=== PATIENT | male | born 1945 | race Caucasian/White ===

== ENCOUNTER 2016-09-17 17:55 | Emergency (ER) | payer MEDICARE, OTHER ==
[~2016-09-17] VITALS: Ht 175.3 cm; Wt 63.5 kg
[~2016-09-17 17:55] MED LIST: ASPIRIN81 MG ORAL; CALCIUM + D SO1 EACH PO; KEFLEX500 MG ORAL; QUETIAPINE FUMA25 MG PO; SERTRALINE HCL50 MG PO
[2016-09-17 18:38] LABS: APPEARANCE,URINE CLOUDY; KETONES,URINE NEGATIVE (NEGATIVE); NITRITE,URINE NEGATIVE (NEGATIVE); PROTEIN,URINE 1+ (NEGATIVE); UROBILINOGEN,URINE NORMAL MG/DL (0.0-1.0)
[2016-09-17 18:39] LABS: LEUKOCYTE ESTERASE ,URINE 2+ (NEGATIVE)
[2016-09-17] MEDS ORDERED: BACTRIM DS TAB1 EAC1 ORAL (18:39)
[2016-09-17] MEDS ORDERED: Bactrim DS (160mg/800mg) tab ORAL ONE (18:45)
[2016-09-17 18:49] LABS: RBC,URINE TNTC /HPF (0 - 0); WBC,URINE TNTC /HPF (0 - 0)
[2016-09-17 18:50] LABS: BACTERIA,URINE FEW /HPF
--- NOTE | 2016-09-17 18:57 | Emergency Room Report ---
History of Present Illness General Chief Complaint: Male Urogenital Problems Source: Patient Present Illness HPI Patient is a 71-year-old male who presented after increased dysuria and frequency of urination. The patient had prior history of prostate surgery. Patient state had intermittent episodes of urinary tract infections in the past per patient report having increased frequency of urination associated with increased hesitancy. Patient denied any fever or dizziness. He is followed by urologist. Allergies: Coded Allergies: No Known Allergies (Unverified , 07/18/12) Patient History Past Medical History: see triage record Reviewed Nursing Documentation: PMH: Agreed, PSxH: Agreed Nursing Documentation-PMH Past Medical History: No History, Except For Review of Systems All Other Systems: negative except mentioned in HPI Physical Exam Vital Signs Date Time Temp Pulse Resp B/P Pulse Ox O2 Delivery O2 Flow Rate FiO2 09/17/16 18:00 97.9 73 16 144/69 97 Room Air General Appearance: well appearing, no apparent distress, alert, GCS 15 Head: normocephalic, atraumatic ENT: hearing grossly normal, normal voice Neck: full range of motion, supple Respiratory: no respiratory distress, speaking full sentences Musculoskeletal: normal inspection, back normal, gait/station normal, no calf tenderness Neurologic: normal gait Psychiatric: mood/affect normal Skin: no rash Medical Decision Making Diagnostic Impression: Primary Impression: Urinary tract infection ER Course Patient presented for dysuria. Differential diagnosis included was not limited to appendicitis, urinary tract infection, pelvic inflammatory disease, urethritis, herpes among others. Patient's benign exam and does not appear to require any imaging at this time. Urinalysis showed evidence of a urinary tract infection. The patient does not appear septic. The patient was given Bactrim in emergency department. He is given prescription for antibiotics The patient is advised to follow up with primary care doctor in 1-2 days. Patient is advised to return if any worsening condition or if any changes in status that are concerning. Last Vital Signs Date Time Temp Pulse Resp B/P Pulse Ox O2 Delivery O2 Flow Rate FiO2 09/17/16 18:00 97.9 73 16 144/69 97 Room Air Status: improved Disposition: HOME, SELF-CARE Condition: Stable Scripts Trimethoprim/Sulfamethoxazole 160/800* (BACTRIM DS TABLET*) 1 Each Tablet 1 TAB ORAL Q12H, #28 TAB 0 Refills Prov: Mode Blanchard 09/17/16 Referrals: NOT CHOSEN IPA/,REFERRING (PCP) Patient Instructions: Urinary Tract Infection Mode Blanchard Sep 17, 2016 18:57
[2016-09-17 18:58] VITALS: BP 142/85
== END 2016-09-17 19:05 | disposition home or self-care (01) ==
LOC: EMR 18:20
DX: N39.0 Urinary tract infection, site not specified (principal)
CPT/HCPCS: 81003; 87086; 87181; 99283

== ENCOUNTER 2016-11-11 15:22 | Inpatient (IN) | payer MEDICARE, OTHER ==
[~2016-11-11] VITALS: Ht 175.3 cm; Wt 63.5 kg
[~2016-11-11 15:22] MED LIST changes: +BACTRIM DS TAB1 EAC1 ORAL
[2016-11-11 16:00] LABS: BASOPHILS % (AUTO) 1.1 % (0.0-2.0); EOSINOPHILS % (AUTO) 3.7 % (0.0-3.0); LYMPHOCYTES % (AUTO) 20.3 % (20.0-45.0); MEAN CORPUSCULAR HEMOGLOBIN 30.3 PG (27.0-31.0); MEAN CORPUSCULAR HGB CONC 31.9 G/DL (32.0-36.0); MEAN CORPUSCULAR VOLUME 95 FL (80-99); MONOCYTES % (AUTO) 9.1 % (1.0-10.0); NEUTROPHILS % (AUTO) 65.9 % (45.0-75.0); PLATELET COUNT 285 K/UL (150-450); RED BLOOD COUNT 4.67 M/UL (4.70-6.10); RED CELL DISTRIBUTION WIDTH 13.2 % (11.6-14.8); WHITE BLOOD COUNT 10.9 K/UL (4.8-10.8)
[2016-11-11] MEDS ORDERED: Famotidine 20 MG/ 2ML VIAL IVP ONE (16:00)
[2016-11-11 16:03] LABS: APPEARANCE,URINE CLEAR; KETONES,URINE 4+ (NEGATIVE); LEUKOCYTE ESTERASE ,URINE NEGATIVE (NEGATIVE); NITRITE,URINE NEGATIVE (NEGATIVE); PH,URINE 6 (4.5-8.0); PROTEIN,URINE NEGATIVE (NEGATIVE); UROBILINOGEN,URINE NORMAL MG/DL (0.0-1.0)
[2016-11-11 16:15] LABS: RBC,URINE 0-2 /HPF (0 - 0); WBC,URINE 0-2 /HPF (0 - 0)
[2016-11-11 16:16] LABS: BACTERIA,URINE FEW /HPF
[2016-11-11 16:22] LABS: TROPONIN I < 0.30 ng/mL (<=0.30)
[2016-11-11 16:23] LABS: ALANINE AMINOTRANSFERASE 13 U/L (3-41); ALBUMIN/GLOBULIN RATIO 1.1 (1.0-2.7); ANION GAP 18 (5-15); ASPARTATE AMINO TRANSFERASE 23 U/L (5-40); CALCIUM 9.9 mg/dL (8.6-10.2); CARBON DIOXIDE 28 mEQ/L (20-30); CHLORIDE 90 mEQ/L (98-107); CREATININE 0.9 mg/dL (0.7-1.2); GLOMERULAR FILTRATION RATE > 60 mL/min (>60); HEMOLYSIS 5; LIPASE 13 U/L (< 60); POTASSIUM 3.8 mEQ/L (3.4-4.9); SODIUM 136 mEQ/L (135-145); TOTAL PROTEIN 8.2 g/dL (6.6-8.7)
--- NOTE | 2016-11-11 16:31 | Diagnostic Imaging Report ---
Indication: Chest pain Technique: One view of the chest Comparison: none Findings: Lungs and pleural spaces are clear. Heart size is normal. Impression: No acute process
[2016-11-11 16:41] VITALS: BP 141/77
[2016-11-11 16:51] LABS: CKMB 5.5 ng/mL (< 6.7)
[2016-11-11 18:22] VITALS: BP 138/76
[2016-11-11] MEDS ORDERED: Morphine Sulfate 2mg/ml Inj IVP PRN (19:15)
[2016-11-11] MEDS ORDERED: Nitroglycerin Subl 0.4mg tab (Bottle Of 25) SL PRN (19:15)
[2016-11-11] MEDS ORDERED: Miralax 17gm pkt ORAL PRN (19:15)
[2016-11-11] MEDS ORDERED: Mylanta II UD 30ml ORAL PRN (19:15)
[2016-11-11] MEDS: D5 1/2NS 1,000 ML IV SCH (20:15)
--- NOTE | 2016-11-11 20:31 | Emergency Room Report ---
History of Present Illness General Chief Complaint: Abdominal Pain Source: Patient Present Illness HPI 71-year-old male presents ED complaining of dizziness and weakness with abdominal pain. patient symptoms started today around 2 PM. Notes epigastric pain which is sharp, 7/10, nonradiating. Notes nausea, denies vomiting. Denies chest pain or shortness of breath. States he feels lightheaded and dizzy. Notes dizziness even while at rest. No aggravating or relieving factors. Denies any other associated symptoms Allergies: Coded Allergies: No Known Allergies (Unverified , 07/18/12) Patient History Past Medical History: none Past Surgical History: none Pertinent Family History: none Social History: Denies: alcohol use, drug use, smoking Immunizations: UTD Reviewed Nursing Documentation: PMH: Agreed, PSxH: Agreed Review of Systems All Other Systems: negative except mentioned in HPI Physical Exam Vital Signs Date Time Temp Pulse Resp B/P Pulse Ox O2 Delivery O2 Flow Rate FiO2 11/11/16 15:21 98.4 59 20 147/77 99 Room Air Sp02 EP Interpretation: reviewed, normal General Appearance: no apparent distress, alert, GCS 15, non-toxic Head: normocephalic, atraumatic Eyes: bilateral eye PERRL, bilateral eye normal inspection ENT: hearing grossly normal, normal pharynx, no angioedema, normal voice Neck: full range of motion, supple/symm/no masses Respiratory: chest non-tender, lungs clear, normal breath sounds, speaking full sentences Cardiovascular #1: regular rate, rhythm, no edema Cardiovascular #2: 2+ carotid (R), 2+ carotid (L), 2+ radial (R), 2+ radial (L) , 2+ dorsalis pedis (R), 2+ dorsalis pedis (L) Gastrointestinal: normal bowel sounds, soft, non-distended, no guarding, no rebound, tenderness - epigastric Rectal: deferred Genitourinary: normal inspection, no CVA tenderness Musculoskeletal: back normal, gait/station normal, normal range of motion, non- tender Neurologic: alert, oriented x3, responsive, motor strength/tone normal, sensory intact, speech normal Psychiatric: judgement/insight normal, memory normal, mood/affect normal, no suicidal/homicidal ideation Reflexes: 3+ bicep (R), 3+ bicep (L), 3+ tricep (R), 3+ tricep (L), 3+ knee (R) , 3+ knee (L) Skin: normal color, no rash, warm/dry, well hydrated Lymphatic: no adenopathy Medical Decision Making Diagnostic Impression: Primary Impression: Bradycardia Additional Impression: Dizziness ER Course Hospital Course 71-year-old male presents ED complaining of dizziness, epigastric pain with nausea and vomiting Differential diagnoses include: [place]/unstable angina, hyperkalemia, gastritis Clinical course Patient placed on stretcher. on cardiac cath tech. After initial history and physical I ordered labs, EKG, chest x-ray, IVFs, pepcid, zofran labs reviewed- no leukocytosis, hb/hct stable, electrolytes ok, trop negative EKG - sinus radha, no acute ischemic changes Chest x-ray- unremarkable Case discussed with Dr. Meza and he agreed to accept the patient to his service for further care and support I. I feel this is a highly complex case requiring extensive working including EKG/Rhythm strip, Xray/CT/US, Blood/urine lab work, repeat exams while in ED, and administration of strong opiates/narcotics for pain control, admission to hospital or close patient follow up. Diagnosis - bradycardia, dizziness admitted to telemetry in serious condition Labs Test 11/11/16 15:52 White Blood Count 10.9 K/UL (4.8-10.8) Red Blood Count 4.67 M/UL (4.70-6.10) Hemoglobin 14.2 G/DL (14.2-18.0) Hematocrit 44.4 % (42.0-52.0) Mean Corpuscular Volume 95 FL (80-99) Mean Corpuscular Hemoglobin 30.3 PG (27.0-31.0) Mean Corpuscular Hemoglobin Concent 31.9 G/DL (32.0-36.0) Red Cell Distribution Width 13.2 % (11.6-14.8) Platelet Count 285 K/UL (150-450) Mean Platelet Volume 6.0 FL (6.5-10.1) Neutrophils (%) (Auto) 65.9 % (45.0-75.0) Lymphocytes (%) (Auto) 20.3 % (20.0-45.0) Monocytes (%) (Auto) 9.1 % (1.0-10.0) Eosinophils (%) (Auto) 3.7 % (0.0-3.0) Basophils (%) (Auto) 1.1 % (0.0-2.0) Urine Color Yellow Urine Appearance Clear Urine pH 6 (4.5-8.0) Urine Specific [place] 1.020 (1.005-1.035) Urine Protein Negative (NEGATIVE) Urine Glucose (UA) Negative (NEGATIVE) Urine Ketones 4+ (NEGATIVE) Urine Occult Blood 1+ (NEGATIVE) Urine Nitrite Negative (NEGATIVE) Urine Bilirubin Negative (NEGATIVE) Urine Urobilinogen Normal MG/DL (0.0-1.0) Urine Leukocyte Esterase Negative (NEGATIVE) Urine RBC 0-2 /HPF (0 - 0) Urine WBC 0-2 /HPF (0 - 0) Urine Squamous Epithelial Cells None /LPF (NONE/OCC) Urine Bacteria Few /HPF (NONE) Sodium Level 136 mEQ/L (135-145) Potassium Level 3.8 mEQ/L (3.4-4.9) Chloride Level 90 mEQ/L (98-107) Carbon Dioxide Level 28 mEQ/L (20-30) Anion Gap 18 (5-15) Blood Urea Nitrogen 15 mg/dL (7-23) Creatinine 0.9 mg/dL (0.7-1.2) Estimat Glomerular Filtration Rate > 60 mL/min (>60) Glucose Level 92 mg/dL (74-106) Calcium Level 9.9 mg/dL (8.6-10.2) Total Bilirubin 0.7 mg/dL (0.0-1.2) Aspartate Amino Transf (AST/SGOT) 23 U/L (5-40) Alanine Aminotransferase (ALT/SGPT) 13 U/L (3-41) Alkaline Phosphatase 81 U/L (40-129) Total Creatine Kinase 190 U/L (38-174) Creatine Kinase MB 5.5 ng/mL (< 6.7) Creatine Kinase MB Relative Index 2.8 Troponin I < 0.30 ng/mL (<=0.30) Total Protein 8.2 g/dL (6.6-8.7) Albumin 4.4 g/dL (3.5-5.2) Globulin 3.8 g/dL Albumin/Globulin Ratio 1.1 (1.0-2.7) Lipase 13 U/L (< 60) EKG Diagnostic Results Rate: bradycardiac Rhythm: NSR ST Segments: no acute changes ASA given to the pt in ED: No Rhythm Strip Diag. Results EP Interpretation: yes Rhythm: NSR, no PVC's, no ectopy Chest X-Ray Diagnostic Results EP Interpretation: No Findings: no consolidation, no effusion, no pneumothorax, no acute cardiopulmonary disease Number of Views: 1 Last Vital Signs Date Time Temp Pulse Resp B/P Pulse Ox O2 Delivery O2 Flow Rate FiO2 11/11/16 18:22 98.1 73 20 138/76 98 Room Air Status: improved Disposition: ADMITTED INPATIENT Condition: Serious Referrals: NON PHYSICIAN (PCP) ALICIA ERIC M.D. Nov 11, 2016 20:31
[2016-11-11 20:43] VITALS: BP 107/60
[2016-11-11 21:30] VITALS: BP 111/60
[2016-11-11] MEDS: Heparin 5000 units/ml inj SUBQ SCH (21:38)
[2016-11-12 00:25] VITALS: BP 117/62
[2016-11-12 04:00] VITALS: BP 124/71
[2016-11-12 05:09] LABS: BASOPHILS % (AUTO) 0.9 % (0.0-2.0); EOSINOPHILS % (AUTO) 7.4 % (0.0-3.0); LYMPHOCYTES % (AUTO) 39.3 % (20.0-45.0); MEAN CORPUSCULAR HEMOGLOBIN 31.2 PG (27.0-31.0); MEAN CORPUSCULAR HGB CONC 32.7 G/DL (32.0-36.0); MEAN CORPUSCULAR VOLUME 95 FL (80-99); MEAN PLATELET VOLUME 6.8 FL (6.5-10.1); MONOCYTES % (AUTO) 9.4 % (1.0-10.0); NEUTROPHILS % (AUTO) 43.1 % (45.0-75.0); PLATELET COUNT 257 K/UL (150-450); RED BLOOD COUNT 4.21 M/UL (4.70-6.10); RED CELL DISTRIBUTION WIDTH 13.4 % (11.6-14.8); WHITE BLOOD COUNT 8.4 K/UL (4.8-10.8)
[2016-11-12 05:35] LABS: ALANINE AMINOTRANSFERASE 9 U/L (3-41); ALBUMIN/GLOBULIN RATIO 1.1 (1.0-2.7); AMYLASE 49 U/L (10-110); ANION GAP 13 (5-15); ASPARTATE AMINO TRANSFERASE 16 U/L (5-40); CALCIUM 8.7 mg/dL (8.6-10.2); CARBON DIOXIDE 24 mEQ/L (20-30); CHLORIDE 104 mEQ/L (98-107); CREATININE 0.8 mg/dL (0.7-1.2); GLOMERULAR FILTRATION RATE > 60 mL/min (>60); HEMOLYSIS 3; POTASSIUM 3.7 mEQ/L (3.4-4.9); SODIUM 141 mEQ/L (135-145); TOTAL PROTEIN 5.8 g/dL (6.6-8.7)
[2016-11-12 07:45] VITALS: BP 122/67
[2016-11-12] MEDS: Aspirin Baby 81mg ORAL SCH (08:44)
[2016-11-12] MEDS: Sertraline 50mg tab ORAL SCH (08:44)
[2016-11-12] MEDS: Pantoprazole Inj IVP SCH (08:44)
[2016-11-12] MEDS: Heparin 5000 units/ml inj SUBQ SCH ×2 (08:45→21:56)
[2016-11-12] MEDS: D5 1/2NS 1,000 ML IV SCH ×2 (08:46→21:53)
[2016-11-12 11:37] VITALS: BP 130/70
--- NOTE | 2016-11-12 12:14 | Neurology Progress Note ---
Objective Physical Exam Last Vital Signs Date Time Temp Pulse Resp B/P Pulse Ox O2 Delivery O2 Flow Rate FiO2 11/12/16 11:37 97.0 66 18 130/70 98 Room Air Laboratory Tests Test 11/11/16 15:52 11/12/16 03:45 White Blood Count 10.9 K/UL (4.8-10.8) H 8.4 K/UL (4.8-10.8) Red Blood Count 4.67 M/UL (4.70-6.10) L 4.21 M/UL (4.70-6.10) L Hemoglobin 14.2 G/DL (14.2-18.0) 13.2 G/DL (14.2-18.0) L Hematocrit 44.4 % (42.0-52.0) 40.2 % (42.0-52.0) L Mean Corpuscular Volume 95 FL (80-99) 95 FL (80-99) Mean Corpuscular Hemoglobin 30.3 PG (27.0-31.0) 31.2 PG (27.0-31.0) H Mean Corpuscular Hemoglobin Concent 31.9 G/DL (32.0-36.0) L 32.7 G/DL (32.0-36.0) Red Cell Distribution Width 13.2 % (11.6-14.8) 13.4 % (11.6-14.8) Platelet Count 285 K/UL (150-450) 257 K/UL (150-450) Mean Platelet Volume 6.0 FL (6.5-10.1) L 6.8 FL (6.5-10.1) Neutrophils (%) (Auto) 65.9 % (45.0-75.0) 43.1 % (45.0-75.0) L Lymphocytes (%) (Auto) 20.3 % (20.0-45.0) 39.3 % (20.0-45.0) Monocytes (%) (Auto) 9.1 % (1.0-10.0) 9.4 % (1.0-10.0) Eosinophils (%) (Auto) 3.7 % (0.0-3.0) H 7.4 % (0.0-3.0) H Basophils (%) (Auto) 1.1 % (0.0-2.0) 0.9 % (0.0-2.0) Urine Color Yellow Urine Appearance Clear Urine pH 6 (4.5-8.0) Urine Specific [place] 1.020 (1.005-1.035) Urine Protein Negative (NEGATIVE) Urine Glucose (UA) Negative (NEGATIVE) Urine Ketones 4+ (NEGATIVE) H Urine Occult Blood 1+ (NEGATIVE) H Urine Nitrite Negative (NEGATIVE) Urine Bilirubin Negative (NEGATIVE) Urine Urobilinogen Normal MG/DL (0.0-1.0) Urine Leukocyte Esterase Negative (NEGATIVE) Urine RBC 0-2 /HPF (0 - 0) H Urine WBC 0-2 /HPF (0 - 0) Urine Squamous Epithelial Cells None /LPF (NONE/OCC) Urine Bacteria Few /HPF (NONE) Sodium Level 136 mEQ/L (135-145) 141 mEQ/L (135-145) Potassium Level 3.8 mEQ/L (3.4-4.9) 3.7 mEQ/L (3.4-4.9) Chloride Level 90 mEQ/L (98-107) L 104 mEQ/L (98-107) Carbon Dioxide Level 28 mEQ/L (20-30) 24 mEQ/L (20-30) Anion Gap 18 (5-15) H 13 (5-15) Blood Urea Nitrogen 15 mg/dL (7-23) 10 mg/dL (7-23) Creatinine 0.9 mg/dL (0.7-1.2) 0.8 mg/dL (0.7-1.2) Estimat Glomerular Filtration Rate > 60 mL/min (>60) > 60 mL/min (>60) Glucose Level 92 mg/dL (74-106) 123 mg/dL (74-106) H Calcium Level 9.9 mg/dL (8.6-10.2) 8.7 mg/dL (8.6-10.2) Total Bilirubin 0.7 mg/dL (0.0-1.2) 0.5 mg/dL (0.0-1.2) Aspartate Amino Transf (AST/SGOT) 23 U/L (5-40) 16 U/L (5-40) Alanine Aminotransferase (ALT/SGPT) 13 U/L (3-41) 9 U/L (3-41) Alkaline Phosphatase 81 U/L (40-129) 58 U/L (40-129) Total Creatine Kinase 190 U/L (38-174) H Creatine Kinase MB 5.5 ng/mL (< 6.7) Creatine Kinase MB Relative Index 2.8 Troponin I < 0.30 ng/mL (<=0.30) Total Protein 8.2 g/dL (6.6-8.7) 5.8 g/dL (6.6-8.7) L Albumin 4.4 g/dL (3.5-5.2) 3.1 g/dL (3.5-5.2) L Globulin 3.8 g/dL 2.7 g/dL Albumin/Globulin Ratio 1.1 (1.0-2.7) 1.1 (1.0-2.7) Lipase 13 U/L (< 60) Activated Partial Thromboplast Time 29 SEC (23-33) Amylase Level 49 U/L (10-110) Impression/Recommendations Problems: (1) transient lightheadedness, hiccups, abdomen pain. (2) bradycardia r/o presyncope (3) Psychiatric disorder (4) prostate ca, r/o metastatic disease. Status: unchanged Recommendations # [id number] MIGUEL ANGEL MICHAEL Nov 12, 2016 12:14
[2016-11-12 13:01] LABS: PSA TOTAL < 0.1 ng/mL (< 4.5)
--- NOTE | 2016-11-12 13:09 | GI Initial Consult Note ---
Malina Lr N.P. 11/12/16 1309: History of Present Illness General Date patient seen: Nov 12, 2016 Time patient seen: 09:00 Reason for Hospitalization: Abdominal Pain Referring physician: JORDANA HORTON Reason for Consultation: EPIGASTRIC PAIN Present Illness HPI 71-year-old male presents ED complaining of dizziness and weakness with abdominal pain. patient symptoms started today around 2 PM. Notes epigastric pain which is sharp, 7/10, nonradiating. Notes nausea, denies vomiting. Denies chest pain or shortness of breath. States he feels lightheaded and dizzy. Notes dizziness even while at rest. No aggravating or relieving factors. Denies any other associated symptoms GI CONSULT: HPI as noted above. Pt seen on floor, awake A&Ox4 NAD c/o of epigastric pain 7/10 which he states has now been relieved. Pt stated he tried to relieve his heartburn with water with minimal relief and was forced to call paramedics. Pt presents today with epigastric pain, nausea without vomiting and hypoalbuminemia. CXR unremarkable. Lipase WNL. Last colonoscopy was approximately 4 months ago with unremarkable findings. Home Meds Reported Medications Ca Carbonate/Vitamin D3/Vit K (CALCIUM + D SOFT CHEWABLE TAB) 1 Each Tab.chew, 1 EACH PO, TAB 04/02/16 Aspirin* (ASPIRIN*) 81 Mg Tab.chew, 81 MG ORAL DAILY, TAB 04/02/16 Sertraline Hcl* (ZOLOFT*) 50 Mg Tablet, MG PO 07/18/12 Quetiapine Fumarate* (SEROQUEL*) 25 Mg Tablet, MG PO 07/18/12 Discontinued Scripts Trimethoprim/Sulfamethoxazole 160/800* (BACTRIM DS TABLET*) 1 Each Tablet, 1 TAB ORAL Q12H, #28 TAB 0 Refills Prov:Mode Blanchard 09/17/16 Cephalexin* (KEFLEX*) 500 Mg Capsule, 500 MG ORAL TID, #21 CAP Prov:JUANITA LR M.D. 04/02/16 Med list reviewed/reconciled: Yes Allergies: Coded Allergies: No Known Allergies (Unverified , 07/18/12) Patient History History Provided By: Patient, Medical Record [facility] Narrative Past Medical History: none Past Surgical History: none Pertinent Family History: none Social History: social alcohol use and tobacco use Immunizations: UTD Reviewed Nursing Documentation: PMH: Agreed, PSxH: Agreed Review of Systems All Other Systems: negative except mentioned in HPI Physical Exam Vital Signs Date Time Temp Pulse Resp B/P Pulse Ox O2 Delivery O2 Flow Rate FiO2 11/11/16 15:21 98.4 59 20 147/77 99 Room Air Sp02 EP Interpretation: reviewed Labs Laboratory Tests Test 11/11/16 15:52 11/12/16 03:45 White Blood Count 10.9 K/UL (4.8-10.8) H 8.4 K/UL (4.8-10.8) Red Blood Count 4.67 M/UL (4.70-6.10) L 4.21 M/UL (4.70-6.10) L Hemoglobin 14.2 G/DL (14.2-18.0) 13.2 G/DL (14.2-18.0) L Hematocrit 44.4 % (42.0-52.0) 40.2 % (42.0-52.0) L Mean Corpuscular Volume 95 FL (80-99) 95 FL (80-99) Mean Corpuscular Hemoglobin 30.3 PG (27.0-31.0) 31.2 PG (27.0-31.0) H Mean Corpuscular Hemoglobin Concent 31.9 G/DL (32.0-36.0) L 32.7 G/DL (32.0-36.0) Red Cell Distribution Width 13.2 % (11.6-14.8) 13.4 % (11.6-14.8) Platelet Count 285 K/UL (150-450) 257 K/UL (150-450) Mean Platelet Volume 6.0 FL (6.5-10.1) L 6.8 FL (6.5-10.1) Neutrophils (%) (Auto) 65.9 % (45.0-75.0) 43.1 % (45.0-75.0) L Lymphocytes (%) (Auto) 20.3 % (20.0-45.0) 39.3 % (20.0-45.0) Monocytes (%) (Auto) 9.1 % (1.0-10.0) 9.4 % (1.0-10.0) Eosinophils (%) (Auto) 3.7 % (0.0-3.0) H 7.4 % (0.0-3.0) H Basophils (%) (Auto) 1.1 % (0.0-2.0) 0.9 % (0.0-2.0) Urine Color Yellow Urine Appearance Clear Urine pH 6 (4.5-8.0) Urine Specific [place] 1.020 (1.005-1.035) Urine Protein Negative (NEGATIVE) Urine Glucose (UA) Negative (NEGATIVE) Urine Ketones 4+ (NEGATIVE) H Urine Occult Blood 1+ (NEGATIVE) H Urine Nitrite Negative (NEGATIVE) Urine Bilirubin Negative (NEGATIVE) Urine Urobilinogen Normal MG/DL (0.0-1.0) Urine Leukocyte Esterase Negative (NEGATIVE) Urine RBC 0-2 /HPF (0 - 0) H Urine WBC 0-2 /HPF (0 - 0) Urine Squamous Epithelial Cells None /LPF (NONE/OCC) Urine Bacteria Few /HPF (NONE) Sodium Level 136 mEQ/L (135-145) 141 mEQ/L (135-145) Potassium Level 3.8 mEQ/L (3.4-4.9) 3.7 mEQ/L (3.4-4.9) Chloride Level 90 mEQ/L (98-107) L 104 mEQ/L (98-107) Carbon Dioxide Level 28 mEQ/L (20-30) 24 mEQ/L (20-30) Anion Gap 18 (5-15) H 13 (5-15) Blood Urea Nitrogen 15 mg/dL (7-23) 10 mg/dL (7-23) Creatinine 0.9 mg/dL (0.7-1.2) 0.8 mg/dL (0.7-1.2) Estimat Glomerular Filtration Rate > 60 mL/min (>60) > 60 mL/min (>60) Glucose Level 92 mg/dL (74-106) 123 mg/dL (74-106) H Calcium Level 9.9 mg/dL (8.6-10.2) 8.7 mg/dL (8.6-10.2) Total Bilirubin 0.7 mg/dL (0.0-1.2) 0.5 mg/dL (0.0-1.2) Aspartate Amino Transf (AST/SGOT) 23 U/L (5-40) 16 U/L (5-40) Alanine Aminotransferase (ALT/SGPT) 13 U/L (3-41) 9 U/L (3-41) Alkaline Phosphatase 81 U/L (40-129) 58 U/L (40-129) Total Creatine Kinase 190 U/L (38-174) H Creatine Kinase MB 5.5 ng/mL (< 6.7) Creatine Kinase MB Relative Index 2.8 Troponin I < 0.30 ng/mL (<=0.30) Total Protein 8.2 g/dL (6.6-8.7) 5.8 g/dL (6.6-8.7) L Albumin 4.4 g/dL (3.5-5.2) 3.1 g/dL (3.5-5.2) L Globulin 3.8 g/dL 2.7 g/dL Albumin/Globulin Ratio 1.1 (1.0-2.7) 1.1 (1.0-2.7) Lipase 13 U/L (< 60) Erythrocyte Sedimentation Rate Pending Activated Partial Thromboplast Time 29 SEC (23-33) Amylase Level 49 U/L (10-110) Carcinoembryonic Antigen Pending Prostate Specific Antigen < 0.1 ng/mL (< 4.5) Vitamin B12 Level Pending Anti-Nuclear Antibody Screen Pending General Appearance: well appearing, no apparent distress, alert Head: normocephalic EENT: normal ENT inspection Neck: full range of motion Respiratory: normal breath sounds, no respiratory distress Cardiovascular: normal peripheral pulses, normal rate Gastrointestinal: normal inspection, non tender, soft, normal bowel sounds Rectal: deferred Musculoskeletal: back normal Neurologic: normal inspection, alert, oriented x3, responsive Psychiatric: normal inspection, judgement/insight normal, memory normal Skin: normal inspection, normal color, no rash, warm/dry Lymphatic: normal inspection, no adenopathy Current Medications Current Medications Medications (Trade) Dose Ordered Sig/Dequan Route PRN Reason Start Time Stop Time Status Last Admin Dose Admin Acetaminophen (Tylenol) 650 mg Q4H PRN ORAL T>100.5 11/11/16 19:15 12/11/16 19:14 Al Hydroxide/Mg Hydroxide (Mylanta II) 30 ml Q6H PRN ORAL dyspepsia 11/11/16 19:15 12/11/16 19:14 Aspirin (ASA) 81 mg DAILY ORAL 11/12/16 09:00 12/12/16 08:59 11/12/16 08:44 Dextrose (Dextrose 50%) STAT PRN IV Hypoglycemia 11/11/16 19:15 12/11/16 19:14 Dextrose/Sodium Chloride (D5 0.45% NS) 1,000 ml @ 75 mls/hr [id number] IV 11/11/16 20:00 12/11/16 19:59 11/12/16 08:46 Diphenhydramine HCl (Benadryl) 25 mg Q6H PRN ORAL Itching/Pruritis 11/11/16 19:15 12/11/16 19:14 Heparin Sodium (Porcine) (Heparin 5000 units/ml) 5,000 units EVERY 12 HOURS SUBQ 11/11/16 21:00 12/11/16 20:59 11/12/16 08:45 Morphine Sulfate (Morphine Sulfate) 2 mg Q4H PRN IVP Severe Pain (Pain Scale 7-10) 11/11/16 19:15 11/18/16 19:14 Nitroglycerin (Ntg) 0.4 mg Q5M X 3 DOSES PRN SL Prn Chest Pain 11/11/16 19:15 12/11/16 19:14 Ondansetron HCl (Zofran) 4 mg Q6H PRN IVP Nausea & Vomiting 11/11/16 19:15 12/11/16 19:14 Pantoprazole (Protonix) 40 mg DAILY IVP 11/12/16 09:00 12/12/16 08:59 11/12/16 08:44 Polyethylene Glycol (Miralax) 17 gm HSPRN PRN ORAL Constipation 11/11/16 19:15 12/11/16 19:14 Quetiapine Fumarate (SEROquel) 25 mg EVERY 12 HOURS ORAL 11/11/16 21:00 12/11/16 20:59 11/12/16 08:44 Sertraline HCl 50 mg 50 mg DAILY ORAL 11/12/16 09:00 12/12/16 08:59 11/12/16 08:44 Temazepam (Restoril) 15 mg HSPRN PRN ORAL Insomnia 11/11/16 21:00 11/18/16 20:59 GI: Plan Problems: (1) GERD (gastroesophageal reflux disease) (2) Nausea (3) Hypoalbuminemia (4) Psychiatric disorder Plan CXR negative lipase negative symptomatic treatment at this time adv to regular diet zofran prn ppi fu abd U/S pain mgmt fu labs Discussed with Dr. Hunt. Thank you for referring this patient, we will follow. TRACY HUNT 11/15/16 0717: History of Present Illness General Reason for Hospitalization: Abdominal Pain Present Illness Home Meds Reported Medications Ca Carbonate/Vitamin D3/Vit K (CALCIUM + D SOFT CHEWABLE TAB) 1 Each Tab.chew, 1 EACH PO, TAB 04/02/16 Aspirin* (ASPIRIN*) 81 Mg Tab.chew, 81 MG ORAL DAILY, TAB 04/02/16 Sertraline Hcl* (ZOLOFT*) 50 Mg Tablet, MG PO 07/18/12 Quetiapine Fumarate* (SEROQUEL*) 25 Mg Tablet, MG PO 07/18/12 Discontinued Scripts Trimethoprim/Sulfamethoxazole 160/800* (BACTRIM DS TABLET*) 1 Each Tablet, 1 TAB ORAL Q12H, #28 TAB 0 Refills Prov:Mode Blanchard 09/17/16 Cephalexin* (KEFLEX*) 500 Mg Capsule, 500 MG ORAL TID, #21 CAP Prov:JUANITA LR M.D. 04/02/16 Allergies: Coded Allergies: No Known Allergies (Unverified , 07/18/12) GI: Plan Plan The patient was seen and examined at bedside and all new and available data was reviewed in the patients chart. I agree with the above findings, impression and plan. (Patient seen earlier today. Signature stamp does not reflect patient encounter time.). -Nicci Orellana MDh Isma N.PDaniella Nov 12, 2016 13:09 TRACY HUNT Nov 15, 2016 07:17
--- NOTE | 2016-11-12 13:41 | Consultation ---
History of Present Illness General Date patient seen: Nov 12, 2016 Chief Complaint: Abdominal Pain Referring physician: JORDANA HORTON Reason for Consultation: EPIGASTRIC PAIN Present Illness HPI 71-year-old male with hx of bipolar disorder presented to ED complaining of dizziness and weakness with abdominal pain, nausea, denies vomiting. He feels lightheaded and dizzy. Denies chest pain or shortness of breath No aggravating or relieving factors. Denies any other associated symptoms. He was found to be bradycardic and admitted to telemetry for further work up. Allergies: Coded Allergies: No Known Allergies (Unverified , 07/18/12) Medication History Scheduled Aspirin* (Aspirin*), 81 MG ORAL DAILY, (Reported) Cephalexin* (Keflex*), 500 MG ORAL TID Trimethoprim/Sulfamethoxazole 160/800* (Bactrim Ds Tablet*), 1 TAB ORAL Q12H Miscellaneous Medications Ca Carbonate/Vitamin D3/Vit K (Calcium + D Soft Chewable Tab), 1 EACH PO, ( Reported) Quetiapine Fumarate* (Seroquel*), MG PO, (Reported) Sertraline Hcl* (Zoloft*), MG PO, (Reported) Patient History Healthcare decision maker Resuscitation status Full Code Advanced Directive on File Past Medical/Surgical History Past Medical/Surgical History: (1) Psychiatric disorder Review of Systems Constitutional: Reports: no symptoms Eye: Reports: no symptoms Gastrointestinal: Reports: nausea, vomiting All Other Systems: negative except mentioned in HPI Physical Exam General Appearance: WD/WN, no apparent distress Lines, tubes and drains: peripheral, central line HEENT: normocephalic, atraumatic Neck: non-tender, normal alignment Respiratory/Chest: chest wall non-tender, normal breath sounds Abdomen: normal bowel sounds, non tender Genitourinary/Rectal: normal genital exam Extremities: normal range of motion Skin Exam: normal pigmentation 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 Last 24 Hour Vital Signs Date Time Temp Pulse Resp B/P Pulse Ox O2 Delivery O2 Flow Rate FiO2 11/12/16 11:37 97.0 66 18 130/70 98 Room Air 11/12/16 08:00 53 11/12/16 07:45 97.0 50 18 122/67 96 Room Air 11/12/16 04:00 98.6 59 19 124/71 98 Room Air 11/12/16 04:00 55 11/12/16 00:25 98.5 54 20 117/62 98 Room Air 11/12/16 00:00 58 11/11/16 21:43 50 11/11/16 21:30 97.3 50 16 111/60 95 Room Air 11/11/16 20:43 98.3 52 15 107/60 100 Room Air 11/11/16 18:22 98.1 73 20 138/76 98 Room Air 11/11/16 16:41 98.0 60 18 141/77 98 Room Air 11/11/16 15:21 98.4 59 20 147/77 99 Room Air Intake and Output 11/11/16 11/12/16 19:00 07:00 Intake Total 2100 ml 806.25 ml Output Total 600 ml 200 ml Balance 1500 ml 606.25 ml Intake Oral 100 ml IV Total 1000 ml 806.25 ml Other 1000 ml Output Urine Total 600 ml 200 ml # Voids 1 2 Laboratory Tests Test 11/11/16 15:52 11/12/16 03:45 White Blood Count 10.9 K/UL (4.8-10.8) H 8.4 K/UL (4.8-10.8) Red Blood Count 4.67 M/UL (4.70-6.10) L 4.21 M/UL (4.70-6.10) L Hemoglobin 14.2 G/DL (14.2-18.0) 13.2 G/DL (14.2-18.0) L Hematocrit 44.4 % (42.0-52.0) 40.2 % (42.0-52.0) L Mean Corpuscular Volume 95 FL (80-99) 95 FL (80-99) Mean Corpuscular Hemoglobin 30.3 PG (27.0-31.0) 31.2 PG (27.0-31.0) H Mean Corpuscular Hemoglobin Concent 31.9 G/DL (32.0-36.0) L 32.7 G/DL (32.0-36.0) Red Cell Distribution Width 13.2 % (11.6-14.8) 13.4 % (11.6-14.8) Platelet Count 285 K/UL (150-450) 257 K/UL (150-450) Mean Platelet Volume 6.0 FL (6.5-10.1) L 6.8 FL (6.5-10.1) Neutrophils (%) (Auto) 65.9 % (45.0-75.0) 43.1 % (45.0-75.0) L Lymphocytes (%) (Auto) 20.3 % (20.0-45.0) 39.3 % (20.0-45.0) Monocytes (%) (Auto) 9.1 % (1.0-10.0) 9.4 % (1.0-10.0) Eosinophils (%) (Auto) 3.7 % (0.0-3.0) H 7.4 % (0.0-3.0) H Basophils (%) (Auto) 1.1 % (0.0-2.0) 0.9 % (0.0-2.0) Urine Color Yellow Urine Appearance Clear Urine pH 6 (4.5-8.0) Urine Specific [place] 1.020 (1.005-1.035) Urine Protein Negative (NEGATIVE) Urine Glucose (UA) Negative (NEGATIVE) Urine Ketones 4+ (NEGATIVE) H Urine Occult Blood 1+ (NEGATIVE) H Urine Nitrite Negative (NEGATIVE) Urine Bilirubin Negative (NEGATIVE) Urine Urobilinogen Normal MG/DL (0.0-1.0) Urine Leukocyte Esterase Negative (NEGATIVE) Urine RBC 0-2 /HPF (0 - 0) H Urine WBC 0-2 /HPF (0 - 0) Urine Squamous Epithelial Cells None /LPF (NONE/OCC) Urine Bacteria Few /HPF (NONE) Sodium Level 136 mEQ/L (135-145) 141 mEQ/L (135-145) Potassium Level 3.8 mEQ/L (3.4-4.9) 3.7 mEQ/L (3.4-4.9) Chloride Level 90 mEQ/L (98-107) L 104 mEQ/L (98-107) Carbon Dioxide Level 28 mEQ/L (20-30) 24 mEQ/L (20-30) Anion Gap 18 (5-15) H 13 (5-15) Blood Urea Nitrogen 15 mg/dL (7-23) 10 mg/dL (7-23) Creatinine 0.9 mg/dL (0.7-1.2) 0.8 mg/dL (0.7-1.2) Estimat Glomerular Filtration Rate > 60 mL/min (>60) > 60 mL/min (>60) Glucose Level 92 mg/dL (74-106) 123 mg/dL (74-106) H Calcium Level 9.9 mg/dL (8.6-10.2) 8.7 mg/dL (8.6-10.2) Total Bilirubin 0.7 mg/dL (0.0-1.2) 0.5 mg/dL (0.0-1.2) Aspartate Amino Transf (AST/SGOT) 23 U/L (5-40) 16 U/L (5-40) Alanine Aminotransferase (ALT/SGPT) 13 U/L (3-41) 9 U/L (3-41) Alkaline Phosphatase 81 U/L (40-129) 58 U/L (40-129) Total Creatine Kinase 190 U/L (38-174) H Creatine Kinase MB 5.5 ng/mL (< 6.7) Creatine Kinase MB Relative Index 2.8 Troponin I < 0.30 ng/mL (<=0.30) Total Protein 8.2 g/dL (6.6-8.7) 5.8 g/dL (6.6-8.7) L Albumin 4.4 g/dL (3.5-5.2) 3.1 g/dL (3.5-5.2) L Globulin 3.8 g/dL 2.7 g/dL Albumin/Globulin Ratio 1.1 (1.0-2.7) 1.1 (1.0-2.7) Lipase 13 U/L (< 60) Erythrocyte Sedimentation Rate Pending Activated Partial Thromboplast Time 29 SEC (23-33) Amylase Level 49 U/L (10-110) Carcinoembryonic Antigen 4.0 ng/mL H Prostate Specific Antigen < 0.1 ng/mL (< 4.5) Vitamin B12 Level Pending Anti-Nuclear Antibody Screen Pending Height (Feet): 5 Height (Inches): 9.00 Weight (Pounds): 140 Medications Current Medications Medications (Trade) Dose Ordered Sig/Dequan Route PRN Reason Start Time Stop Time Status Last Admin Dose Admin Acetaminophen (Tylenol) 650 mg Q4H PRN ORAL T>100.5 11/11/16 19:15 12/11/16 19:14 Al Hydroxide/Mg Hydroxide (Mylanta II) 30 ml Q6H PRN ORAL dyspepsia 11/11/16 19:15 12/11/16 19:14 Aspirin (ASA) 81 mg DAILY ORAL 11/12/16 09:00 12/12/16 08:59 11/12/16 08:44 Dextrose (Dextrose 50%) STAT PRN IV Hypoglycemia 11/11/16 19:15 12/11/16 19:14 Dextrose/Sodium Chloride (D5 0.45% NS) 1,000 ml @ 75 mls/hr [id number] IV 11/11/16 20:00 12/11/16 19:59 11/12/16 08:46 Diphenhydramine HCl (Benadryl) 25 mg Q6H PRN ORAL Itching/Pruritis 11/11/16 19:15 12/11/16 19:14 Heparin Sodium (Porcine) (Heparin 5000 units/ml) 5,000 units EVERY 12 HOURS SUBQ 11/11/16 21:00 12/11/16 20:59 11/12/16 08:45 Morphine Sulfate (Morphine Sulfate) 2 mg Q4H PRN IVP Severe Pain (Pain Scale 7-10) 11/11/16 19:15 11/18/16 19:14 Nitroglycerin (Ntg) 0.4 mg Q5M X 3 DOSES PRN SL Prn Chest Pain 11/11/16 19:15 12/11/16 19:14 Ondansetron HCl (Zofran) 4 mg Q6H PRN IVP Nausea & Vomiting 11/11/16 19:15 12/11/16 19:14 Pantoprazole (Protonix) 40 mg DAILY IVP 11/12/16 09:00 12/12/16 08:59 11/12/16 08:44 Polyethylene Glycol (Miralax) 17 gm HSPRN PRN ORAL Constipation 11/11/16 19:15 12/11/16 19:14 Quetiapine Fumarate (SEROquel) 25 mg EVERY 12 HOURS ORAL 11/11/16 21:00 12/11/16 20:59 11/12/16 08:44 Sertraline HCl 50 mg 50 mg DAILY ORAL 11/12/16 09:00 12/12/16 08:59 11/12/16 08:44 Temazepam (Restoril) 15 mg HSPRN PRN ORAL Insomnia 11/11/16 21:00 11/18/16 20:59 Assessment/Plan Problem List: (1) Bradycardia ICD Codes: R00.1 - Bradycardia, unspecified SNOMED: 49404213 (2) Nausea ICD Codes: R11.0 - Nausea SNOMED: 873095326 (3) Dizziness ICD Codes: R42 - Dizziness and giddiness SNOMED: 236019160, 490007143 (4) Psychiatric disorder ICD Codes: F99 - Mental disorder, not otherwise specified SNOMED: 74840481, 189558765 Assessment/Plan echo cardiogram telemetry NPO IV fluids GI evaluation DEVAN GARCIA Nov 12, 2016 13:41
--- NOTE | 2016-11-12 13:57 | Diagnostic Imaging Report ---
Indication:Abdominal pain. Elevated lipase and amylase Technique: Grayscale and duplex Doppler imaging of the abdomen performed. Comparison: None Findings: The liver, demonstrated part of the pancreas, gallbladder, aorta and IVC, both kidneys, spleen appear unremarkable. There is no biliary ductal dilatation identified. CBD is between 5 and 6 mm in diameter. Doppler evaluation of the main portal vein shows patency. There is no ascites. No hydronephrosis seen. Impression: Negative abdominal ultrasound.
--- NOTE | 2016-11-12 14:20 | Cardiac Electrophysiology PN ---
Subjective Subjective [id number] Objective Last 24 Hour Vital Signs Date Time Temp Pulse Resp B/P Pulse Ox O2 Delivery O2 Flow Rate FiO2 11/12/16 12:00 62 11/12/16 11:37 97.0 66 18 130/70 98 Room Air 11/12/16 08:00 53 11/12/16 07:45 97.0 50 18 122/67 96 Room Air 11/12/16 04:00 98.6 59 19 124/71 98 Room Air 11/12/16 04:00 55 11/12/16 00:25 98.5 54 20 117/62 98 Room Air 11/12/16 00:00 58 11/11/16 21:43 50 11/11/16 21:30 97.3 50 16 111/60 95 Room Air 11/11/16 20:43 98.3 52 15 107/60 100 Room Air 11/11/16 18:22 98.1 73 20 138/76 98 Room Air 11/11/16 16:41 98.0 60 18 141/77 98 Room Air 11/11/16 15:21 98.4 59 20 147/77 99 Room Air Intake and Output 11/11/16 11/12/16 19:00 07:00 Intake Total 2100 ml 806.25 ml Output Total 600 ml 200 ml Balance 1500 ml 606.25 ml Intake Oral 100 ml IV Total 1000 ml 806.25 ml Other 1000 ml Output Urine Total 600 ml 200 ml # Voids 1 2 Laboratory Tests Test 11/11/16 15:52 11/12/16 03:45 White Blood Count 10.9 K/UL (4.8-10.8) H 8.4 K/UL (4.8-10.8) Red Blood Count 4.67 M/UL (4.70-6.10) L 4.21 M/UL (4.70-6.10) L Hemoglobin 14.2 G/DL (14.2-18.0) 13.2 G/DL (14.2-18.0) L Hematocrit 44.4 % (42.0-52.0) 40.2 % (42.0-52.0) L Mean Corpuscular Volume 95 FL (80-99) 95 FL (80-99) Mean Corpuscular Hemoglobin 30.3 PG (27.0-31.0) 31.2 PG (27.0-31.0) H Mean Corpuscular Hemoglobin Concent 31.9 G/DL (32.0-36.0) L 32.7 G/DL (32.0-36.0) Red Cell Distribution Width 13.2 % (11.6-14.8) 13.4 % (11.6-14.8) Platelet Count 285 K/UL (150-450) 257 K/UL (150-450) Mean Platelet Volume 6.0 FL (6.5-10.1) L 6.8 FL (6.5-10.1) Neutrophils (%) (Auto) 65.9 % (45.0-75.0) 43.1 % (45.0-75.0) L Lymphocytes (%) (Auto) 20.3 % (20.0-45.0) 39.3 % (20.0-45.0) Monocytes (%) (Auto) 9.1 % (1.0-10.0) 9.4 % (1.0-10.0) Eosinophils (%) (Auto) 3.7 % (0.0-3.0) H 7.4 % (0.0-3.0) H Basophils (%) (Auto) 1.1 % (0.0-2.0) 0.9 % (0.0-2.0) Urine Color Yellow Urine Appearance Clear Urine pH 6 (4.5-8.0) Urine Specific [place] 1.020 (1.005-1.035) Urine Protein Negative (NEGATIVE) Urine Glucose (UA) Negative (NEGATIVE) Urine Ketones 4+ (NEGATIVE) H Urine Occult Blood 1+ (NEGATIVE) H Urine Nitrite Negative (NEGATIVE) Urine Bilirubin Negative (NEGATIVE) Urine Urobilinogen Normal MG/DL (0.0-1.0) Urine Leukocyte Esterase Negative (NEGATIVE) Urine RBC 0-2 /HPF (0 - 0) H Urine WBC 0-2 /HPF (0 - 0) Urine Squamous Epithelial Cells None /LPF (NONE/OCC) Urine Bacteria Few /HPF (NONE) Sodium Level 136 mEQ/L (135-145) 141 mEQ/L (135-145) Potassium Level 3.8 mEQ/L (3.4-4.9) 3.7 mEQ/L (3.4-4.9) Chloride Level 90 mEQ/L (98-107) L 104 mEQ/L (98-107) Carbon Dioxide Level 28 mEQ/L (20-30) 24 mEQ/L (20-30) Anion Gap 18 (5-15) H 13 (5-15) Blood Urea Nitrogen 15 mg/dL (7-23) 10 mg/dL (7-23) Creatinine 0.9 mg/dL (0.7-1.2) 0.8 mg/dL (0.7-1.2) Estimat Glomerular Filtration Rate > 60 mL/min (>60) > 60 mL/min (>60) Glucose Level 92 mg/dL (74-106) 123 mg/dL (74-106) H Calcium Level 9.9 mg/dL (8.6-10.2) 8.7 mg/dL (8.6-10.2) Total Bilirubin 0.7 mg/dL (0.0-1.2) 0.5 mg/dL (0.0-1.2) Aspartate Amino Transf (AST/SGOT) 23 U/L (5-40) 16 U/L (5-40) Alanine Aminotransferase (ALT/SGPT) 13 U/L (3-41) 9 U/L (3-41) Alkaline Phosphatase 81 U/L (40-129) 58 U/L (40-129) Total Creatine Kinase 190 U/L (38-174) H Creatine Kinase MB 5.5 ng/mL (< 6.7) Creatine Kinase MB Relative Index 2.8 Troponin I < 0.30 ng/mL (<=0.30) Total Protein 8.2 g/dL (6.6-8.7) 5.8 g/dL (6.6-8.7) L Albumin 4.4 g/dL (3.5-5.2) 3.1 g/dL (3.5-5.2) L Globulin 3.8 g/dL 2.7 g/dL Albumin/Globulin Ratio 1.1 (1.0-2.7) 1.1 (1.0-2.7) Lipase 13 U/L (< 60) Erythrocyte Sedimentation Rate 10 MM/HR (0-20) Activated Partial Thromboplast Time 29 SEC (23-33) Amylase Level 49 U/L (10-110) Carcinoembryonic Antigen 4.0 ng/mL H Prostate Specific Antigen < 0.1 ng/mL (< 4.5) Vitamin B12 Level 296 pg/mL (211-946) Anti-Nuclear Antibody Screen Pending FLORIAN ANNE Nov 12, 2016 14:20
[2016-11-12 16:00] VITALS: BP 129/72
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
--- NOTE | 2016-11-12 18:31 | Cardiology Report ---
APPROVED REPORT EKG Measurement Heart [id number] [place] [id number] Sinus bradycardia Otherwise normal ECG
--- NOTE | 2016-11-12 19:48 | History and Physical Report ---
DATE OF ADMISSION: 11/11/2016 CONSULTANTS: 1. Bill Meza D.O. 2. Lima Santana M.D. 3. Don Steiner M.D. 4. Dada Salazar M.D. 5. Jaun Canchola M.D. CHIEF COMPLAINT: 1. Weakness. 2. Dizziness. 3. Bradycardia. BRIEF HISTORY: This is a 71-year-old male who lives at home presenting with increased weakness, dizziness, and bradycardia for two days. No passing out, but very dizzy and lightheaded. No vertigo. The patient was diagnosed with the above. Admitted to telemetry for further care. Currently calm in bed, slightly confused. Slightly weak. No . REVIEW OF SYSTEMS: No chest pain or shortness of breath. No nausea, vomiting, or diarrhea. PAST MEDICAL HISTORY: Bradycardia, prostate CA, and psychiatric disorder. PAST SURGICAL HISTORY: Prostatectomy and hernia. ALLERGIES: Denies. SOCIAL HISTORY: Positive smoking. Positive alcohol. No intravenous drug abuse. FAMILY HISTORY: Noncontributory. PHYSICAL EXAMINATION: GENERAL: Calm in bed, oriented x3, in no acute distress. VITAL SIGNS: Temperature 97, pulse 52, respiratory rate 18, and blood pressure 130/70. CARDIOVASCULAR: No murmur. LUNGS: Clear to auscultation. ABDOMEN: Bowel sounds positive. Nontender. Nondistended. EXTREMITIES: No cyanosis, clubbing, or edema. NEUROLOGIC: The patient moves all extremities, but slightly weak. LABORATORY AND DIAGNOSTIC DATA: Laboratory exam shows hemoglobin 13.2, otherwise, CBC is normal. BMP shows glucose 123, otherwise, BMP is normal. Troponin less than 0.3. PTT is 29. Urinalysis shows 1+ occult blood, 1+ ketone. MEDICATIONS: Aspirin, Zoloft, Protonix, Seroquel, Restoril, Tylenol, morphine, MiraLax, Zofran, and Benadryl. ASSESSMENT: 1. Dizziness. 2. Weakness. 3. Bradycardia. 4. Prostate cancer. 5. Psychiatric disorder. PLAN: 1. Continue premeds. 2. OT, PT, and dietary evaluation. 3. Troponin q.8 h. x3. 4. EKG in the a.m. 5. Resume home medications 6. Dr. Santana, Dr. Steiner, Dr. Salazar, and Dr. Canchola to consult. 7. CBC and BMP in the morning. Bill Meza D.O. DR: DUKE JOB#: [id number] CC:
[2016-11-12 20:00] VITALS: BP 145/78
--- NOTE | 2016-11-12 22:18 | Consultation ---
DATE OF CONSULTATION: 11/12/2016 CARDIOLOGY CONSULTATION REASON FOR CONSULTATION: Bradycardia and altered level of consciousness. HISTORY OF PRESENT ILLNESS: The patient is a 71-year-old gentleman with a history of bipolar disorder, who was brought to the emergency room complaining of dizziness and weakness. The patient was found to be bradycardic and was admitted to telemetry. Cardiology consultation was obtained for further evaluation. The patient also was complaining of abdominal pain and nausea, but denies any vomiting. The patient is lightheaded and dizzy, but did not pass out. He denies any chest pain, shortness of breath or any precipitating factor. At the time of my evaluation, the patient denies any chest pain, palpitation, or shortness of breath. PAST MEDICAL HISTORY: Bipolar disorder, myocardial infarction, and congestive heart failure. MEDICATIONS: At home include Seroquel, Zoloft, and calcium carbonate. SOCIAL HISTORY: The patient does not smoke and does not drink alcohol. REVIEW OF SYSTEMS: Negative other than what is mentioned in the history of present illness. PHYSICAL EXAMINATION: VITAL SIGNS: Blood pressure is 110/70, pulse is 54, respirations 20, and is afebrile. NECK: No JVD or carotid bruits. LUNGS: Clear. CARDIOVASCULAR: Bradycardic. S1 and S2 with no gallop or murmur. ABDOMEN: Soft and nontender. EXTREMITIES: No pitting edema. LABORATORY AND DIAGNOSTIC DATA: White count 8.4, hemoglobin 13.2, hematocrit of 40, and platelet count 257,000. Sodium 141, potassium 3.7, BUN of 10, creatinine 0.8, and glucose of 123. Troponin is negative. PTT is 22. ASSESSMENT AND PLAN: 1. Bradycardia, we will check the thyroid function test. The first troponin is negative. The patient does not have any chest pain. The patient will be admitted to telemetry, get an echocardiogram to evaluate for ejection fraction and wall motion abnormality. 2. History of bipolar disorder and schizophrenia. The patient has had multiple admissions to [facility]. 3. Abdominal pain and nausea. Further evaluation by Gastroenterology. 4. Dizziness and lightheadedness. 5. History of prostate cancer. Thank you very much, Dr. Meza, for allowing me to participate in the care of this patient. Please do not hesitate to contact me for any questions regarding my evaluation. Don Steiner M.D. DR: VINEET JOB#: [id number] CC:
[2016-11-13] VITALS (7 sets, daily range): BP systolic 112–143; BP diastolic 50–82
[2016-11-13 07:47] LABS: BASOPHILS % (AUTO) 1.1 % (0.0-2.0); EOSINOPHILS % (AUTO) 6.8 % (0.0-3.0); LYMPHOCYTES % (AUTO) 29.5 % (20.0-45.0); MEAN CORPUSCULAR HEMOGLOBIN 30.8 PG (27.0-31.0); MEAN CORPUSCULAR HGB CONC 32.4 G/DL (32.0-36.0); MEAN CORPUSCULAR VOLUME 95 FL (80-99); MEAN PLATELET VOLUME 6.1 FL (6.5-10.1); MONOCYTES % (AUTO) 9.6 % (1.0-10.0); NEUTROPHILS % (AUTO) 53.1 % (45.0-75.0); PLATELET COUNT 268 K/UL (150-450); RED BLOOD COUNT 4.57 M/UL (4.70-6.10); WHITE BLOOD COUNT 7.7 K/UL (4.8-10.8)
[2016-11-13 08:01] LABS: TROPONIN I < 0.30 ng/mL (<=0.30)
[2016-11-13 08:02] LABS: ANION GAP 14 (5-15); CALCIUM 8.9 mg/dL (8.6-10.2); CARBON DIOXIDE 26 mEQ/L (20-30); CHLORIDE 101 mEQ/L (98-107); CREATININE 0.8 mg/dL (0.7-1.2); GLOMERULAR FILTRATION RATE > 60 mL/min (>60); HEMOLYSIS 0; POTASSIUM 3.9 mEQ/L (3.4-4.9); SODIUM 141 mEQ/L (135-145)
[2016-11-13 08:12] LABS: THYROID STIMULATING HORMONE 0.614 uIU/mL (0.300-4.500)
--- NOTE | 2016-11-13 08:22 | General Progress Note ---
Assessment/Plan Problem List: (1) Bradycardia ICD Codes: R00.1 - Bradycardia, unspecified SNOMED: 15260864 (2) GERD (gastroesophageal reflux disease) ICD Codes: K21.9 - Gastro-esophageal reflux disease without esophagitis SNOMED: 191897865 (3) Hypoalbuminemia ICD Codes: E88.09 - Other disorders of plasma-protein metabolism, not elsewhere classified SNOMED: 722004409 Assessment/Plan fu abd CT us was negative fu cardiology Subjective ROS Limited/Unobtainable: Yes Allergies: Coded Allergies: No Known Allergies (Unverified , 07/18/12) Subjective no event Objective Last 24 Hour Vital Signs Date Time Temp Pulse Resp B/P Pulse Ox O2 Delivery O2 Flow Rate FiO2 11/13/16 07:32 97.0 54 18 143/82 97 Room Air 11/13/16 04:00 53 11/13/16 04:00 97.7 50 20 135/75 Room Air 11/13/16 00:00 66 11/13/16 00:00 97.0 60 20 112/50 96 Room Air 11/12/16 20:00 97.7 55 19 145/78 98 Room Air 11/12/16 20:00 52 11/12/16 17:00 56 59 64 11/12/16 16:00 60 11/12/16 16:00 97.5 56 20 129/72 97 Room Air 11/12/16 12:00 62 11/12/16 11:37 97.0 66 18 130/70 98 Room Air Intake and Output 11/12/16 11/13/16 19:00 07:00 Intake Total 480 ml 1005 ml Output Total 500 ml Balance -20 ml 1005 ml Intake Oral 480 ml 480 ml IV Total 525 ml Output Urine Total 500 ml # Voids 2 Laboratory Tests 11/13/16 06:50: White Blood Count 7.7, Red Blood Count 4.57L, Hemoglobin 14.1L, Hematocrit 43.5 , Mean Corpuscular Volume 95, Mean Corpuscular Hemoglobin 30.8, Mean Corpuscular Hemoglobin Concent 32.4, Red Cell Distribution Width 13.0, Platelet Count 268, Mean Platelet Volume 6.1L, Neutrophils (%) (Auto) 53.1, Lymphocytes ( %) (Auto) 29.5, Monocytes (%) (Auto) 9.6, Eosinophils (%) (Auto) 6.8H, Basophils (%) (Auto) 1.1, Sodium Level 141, Potassium Level 3.9, Chloride Level 101, Carbon Dioxide Level 26, Anion Gap 14, Blood Urea Nitrogen 11, Creatinine 0.8, Estimat Glomerular Filtration Rate > 60, Glucose Level 101, Calcium Level 8.9, Troponin I < 0.30, Pro-B-Type Natriuretic Peptide 723H, Thyroid Stimulating Hormone (TSH) 0.614, Free Thyroxine 1.15 Height (Feet): 5 Height (Inches): 9.00 Weight (Pounds): 140 General Appearance: alert EENT: normal ENT inspection Neck: supple Cardiovascular: normal rate Respiratory/Chest: lungs clear Abdomen: normal bowel sounds, non tender, soft Extremities: non-tender TRACY HUNT Nov 13, 2016 08:22
[2016-11-13] MEDS: Sertraline 50mg tab ORAL SCH ×2 (09:00→09:11)
[2016-11-13] MEDS: Aspirin Baby 81mg ORAL SCH (09:10)
[2016-11-13] MEDS: Pantoprazole Inj IVP SCH (09:11)
[2016-11-13] MEDS: Heparin 5000 units/ml inj SUBQ SCH ×2 (09:12→21:12)
--- NOTE | 2016-11-13 09:15 | Diagnostic Imaging Report ---
Indications: Abdominal pain Technique: Continuous helical CT imaging of the abdomen and pelvis was performed with automatic exposure control on a Siemens sensation [address] scanner. Axial, coronal, sagittal images reconstructed at 3 mm slice thickness. No oral or IV contrast was administered per requesting physician's order, despite no contraindications listed in either clinical indications or tech note. CTDI volume(s): 10 mGy Total DLP: 525 mGy-cm Findings: Comparison: None Lack of oral and IV contrast limits evaluation. Gastrointestinal tract nondilated throughout. Mural thickening involving stomach, multiple small bowel loops, multiple colonic segments cannot be excluded. Appendix unremarkable. Multiple colonic diverticula. No extraluminal gas or fluid collections. Suggestion of 1 cm circumscribed low-attenuation focus in hepatic segment 6, not further characterizable. 3 mm calcification in peripheral that sinus junction of upper pole of left kidney. No hydronephrosis. Prominent arterial mural calcifications. Vascular patency indeterminate. Apparent mild mural thickening of urinary bladder. Prostate small or absent. Remainder visualized abdominopelvic anatomy demonstrates no other obvious acute abnormality. Irregular pleural-based linear densities in both lung bases. Multilevel disc space narrowing with marginal osteophyte formation, vacuum phenomenon lower lumbar spine. Subcentimeter anterior subluxation of L5 on S1 with bilateral L5 pars interarticularis defects. IMPRESSION: Limited exam due to technical factors described. Nondiagnostic for nonobstructive pathologic mural thickening involving the stomach, small bowel, colon. Appendix unremarkable. Repeat imaging with full oral and IV contrast preparation recommended for complete evaluation. Colonic diverticulosis Nonspecific liver lesion. Neoplasm not excludable. Ultrasound correlation suggested. Nonobstructive left nephrolithiasis Arteriosclerosis, vascular patency indeterminate Apparent mural thickening of urinary bladder--underdistention versus hypertrophy versus cystitis Small versus absent prostate. Correlate with surgical history. Pulmonary bibasal subsegmental atelectasis versus scarring Spondylosis L5 bilateral spondylolysis, grade 1 anterior spondylolisthesis
--- NOTE | 2016-11-13 12:58 | Cardiac Electrophysiology PN ---
Assessment/Plan Assessment/Plan 1. Bradycardia. Resolved. Ruled out for GA. TFT normal. The patient does not have any chest pain.Echocardiogram showed EF 55% and moderate MR. 2. History of bipolar disorder and schizophrenia. 3. Abdominal pain and nausea. CT abdomen and Pelvis per Gastroenterology. 4. Dizziness and lightheadedness.Was orthostatic, Likely was dehydrated. 5. History of prostate cancer. ARMANI RN Subjective Subjective Had CT abdomen and Pelvis today. Was orthostatic this am.No arrhythmias on tele. In SR. Objective Last 24 Hour Vital Signs Date Time Temp Pulse Resp B/P Pulse Ox O2 Delivery O2 Flow Rate FiO2 11/13/16 12:00 64 11/13/16 11:31 97.0 66 18 140/82 98 Room Air 11/13/16 09:00 61 64 75 11/13/16 08:00 71 11/13/16 07:32 97.0 54 18 143/82 97 Room Air 11/13/16 04:00 53 11/13/16 04:00 97.7 50 20 135/75 Room Air 11/13/16 00:00 66 11/13/16 00:00 97.0 60 20 112/50 96 Room Air 11/12/16 20:00 97.7 55 19 145/78 98 Room Air 11/12/16 20:00 52 11/12/16 17:00 56 59 64 11/12/16 16:00 60 11/12/16 16:00 97.5 56 20 129/72 97 Room Air Intake and Output 11/12/16 11/13/16 19:00 07:00 Intake Total 480 ml 1080 ml Output Total 500 ml Balance -20 ml 1080 ml Intake Oral 480 ml 480 ml IV Total 600 ml Output Urine Total 500 ml # Voids 2 Laboratory Tests Test 11/13/16 06:50 White Blood Count 7.7 K/UL (4.8-10.8) Red Blood Count 4.57 M/UL (4.70-6.10) L Hemoglobin 14.1 G/DL (14.2-18.0) L Hematocrit 43.5 % (42.0-52.0) Mean Corpuscular Volume 95 FL (80-99) Mean Corpuscular Hemoglobin 30.8 PG (27.0-31.0) Mean Corpuscular Hemoglobin Concent 32.4 G/DL (32.0-36.0) Red Cell Distribution Width 13.0 % (11.6-14.8) Platelet Count 268 K/UL (150-450) Mean Platelet Volume 6.1 FL (6.5-10.1) L Neutrophils (%) (Auto) 53.1 % (45.0-75.0) Lymphocytes (%) (Auto) 29.5 % (20.0-45.0) Monocytes (%) (Auto) 9.6 % (1.0-10.0) Eosinophils (%) (Auto) 6.8 % (0.0-3.0) H Basophils (%) (Auto) 1.1 % (0.0-2.0) Sodium Level 141 mEQ/L (135-145) Potassium Level 3.9 mEQ/L (3.4-4.9) Chloride Level 101 mEQ/L (98-107) Carbon Dioxide Level 26 mEQ/L (20-30) Anion Gap 14 (5-15) Blood Urea Nitrogen 11 mg/dL (7-23) Creatinine 0.8 mg/dL (0.7-1.2) Estimat Glomerular Filtration Rate > 60 mL/min (>60) Glucose Level 101 mg/dL (74-106) Calcium Level 8.9 mg/dL (8.6-10.2) Troponin I < 0.30 ng/mL (<=0.30) Pro-B-Type Natriuretic Peptide 723 pg/mL (0-125) H Thyroid Stimulating Hormone (TSH) 0.614 uIU/mL (0.300-4.500) Free Thyroxine 1.15 ng/dL (0.86-1.85) Objective NECK: No JVD or carotid bruits. LUNGS: Clear. CARDIOVASCULAR: Bradycardic. S1 and S2 with no gallop or murmur. ABDOMEN: Soft and nontender. EXTREMITIES: No pitting edema. FLORIAN ANNE Nov 13, 2016 12:58
--- NOTE | 2016-11-13 14:00 | Pulmonology Progress Note ---
Assessment/Plan Assessment/Plan ASSESSMENT symptomatic bradycardia dizziness ( orthostatic) likely 2 to dehydration dehydration prostate Ca with radiation history of bipolar disorder and schizophrenia. PLAN OF CARE tele IVF on tele SR cardio follows CXR negative O2 HHN prn troponin negative dizziness resolved s/p IVF dizziness orthostatic , likely 2 to dehydration ( VS + for orthostatic) abdominal US negative CT abdomen and pelvis no evidence fo metastasis - lipase/amylase WNL, LFT stable, mild elevation in CEA-4.0 GI follows DVT, GI prophylaxis pain management transfer to MS floor dc planning per PMD case discussed and evaluated by supervising physician Subjective Allergies: Coded Allergies: No Known Allergies (Unverified , 07/18/12) Subjective denies chest pain, SOB, dizziness, HR stable, on tele SR Objective Last 24 Hour Vital Signs Date Time Temp Pulse Resp B/P Pulse Ox O2 Delivery O2 Flow Rate FiO2 11/13/16 12:00 64 11/13/16 11:31 97.0 66 18 140/82 98 Room Air 11/13/16 09:00 61 64 75 11/13/16 08:00 71 11/13/16 07:32 97.0 54 18 143/82 97 Room Air 11/13/16 04:00 53 11/13/16 04:00 97.7 50 20 135/75 Room Air 11/13/16 00:00 66 11/13/16 00:00 97.0 60 20 112/50 96 Room Air 11/12/16 20:00 97.7 55 19 145/78 98 Room Air 11/12/16 20:00 52 11/12/16 17:00 56 59 64 11/12/16 16:00 60 11/12/16 16:00 97.5 56 20 129/72 97 Room Air Intake and Output 11/12/16 11/13/16 19:00 07:00 Intake Total 480 ml 1080 ml Output Total 500 ml Balance -20 ml 1080 ml Intake Oral 480 ml 480 ml IV Total 600 ml Output Urine Total 500 ml # Voids 2 General Appearance: WD/WN, no acute distress HEENT: normocephalic, atraumatic, anicteric, mucous membranes moist Respiratory/Chest: lungs clear, no respiratory distress, no accessory muscle use Cardiovascular: normal peripheral pulses, normal rate - SR on tele , regular rhythm Abdomen: normal bowel sounds, soft, non tender, non distended Extremities: no edema, pedal pulses normal Neurologic/Psychiatric: alert, oriented x 3, responsive, normal mood/affect Musculoskeletal: normal muscle bulk Laboratory Tests 11/13/16 06:50: White Blood Count 7.7, Red Blood Count 4.57L, Hemoglobin 14.1L, Hematocrit 43.5 , Mean Corpuscular Volume 95, Mean Corpuscular Hemoglobin 30.8, Mean Corpuscular Hemoglobin Concent 32.4, Red Cell Distribution Width 13.0, Platelet Count 268, Mean Platelet Volume 6.1L, Neutrophils (%) (Auto) 53.1, Lymphocytes ( %) (Auto) 29.5, Monocytes (%) (Auto) 9.6, Eosinophils (%) (Auto) 6.8H, Basophils (%) (Auto) 1.1, Sodium Level 141, Potassium Level 3.9, Chloride Level 101, Carbon Dioxide Level 26, Anion Gap 14, Blood Urea Nitrogen 11, Creatinine 0.8, Estimat Glomerular Filtration Rate > 60, Glucose Level 101, Calcium Level 8.9, Troponin I < 0.30, Pro-B-Type Natriuretic Peptide 723H, Thyroid Stimulating Hormone (TSH) 0.614, Free Thyroxine 1.15 Current Medications Medications (Trade) Dose Ordered Sig/Dequan Route PRN Reason Start Time Stop Time Status Last Admin Dose Admin Acetaminophen (Tylenol) 650 mg Q4H PRN ORAL T>100.5 11/11/16 19:15 12/11/16 19:14 Al Hydroxide/Mg Hydroxide (Mylanta II) 30 ml Q6H PRN ORAL dyspepsia 11/11/16 19:15 12/11/16 19:14 Aspirin (ASA) 81 mg DAILY ORAL 11/12/16 09:00 12/12/16 08:59 11/13/16 09:10 Dextrose (Dextrose 50%) STAT PRN IV Hypoglycemia 11/11/16 19:15 12/11/16 19:14 Diphenhydramine HCl (Benadryl) 25 mg Q6H PRN ORAL Itching/Pruritis 11/11/16 19:15 12/11/16 19:14 Heparin Sodium (Porcine) (Heparin 5000 units/ml) 5,000 units EVERY 12 HOURS SUBQ 11/11/16 21:00 12/11/16 20:59 11/13/16 09:12 Morphine Sulfate (Morphine Sulfate) 2 mg Q4H PRN IVP Severe Pain (Pain Scale 7-10) 11/11/16 19:15 11/18/16 19:14 Nitroglycerin (Ntg) 0.4 mg Q5M X 3 DOSES PRN SL Prn Chest Pain 11/11/16 19:15 12/11/16 19:14 Ondansetron HCl (Zofran) 4 mg Q6H PRN IVP Nausea & Vomiting 11/11/16 19:15 12/11/16 19:14 Pantoprazole (Protonix) 40 mg DAILY IVP 11/12/16 09:00 12/12/16 08:59 11/13/16 09:11 Polyethylene Glycol (Miralax) 17 gm HSPRN PRN ORAL Constipation 11/11/16 19:15 12/11/16 19:14 Quetiapine Fumarate (SEROquel) 25 mg EVERY 12 HOURS ORAL 11/11/16 21:00 12/11/16 20:59 11/13/16 09:10 Sertraline HCl (Zoloft) 50 mg DAILY ORAL 11/12/16 09:00 12/12/16 08:59 11/12/16 08:44 Temazepam (Restoril) 15 mg HSPRN PRN ORAL Insomnia 11/11/16 21:00 11/18/16 20:59 Gaby Alvarez NP ([facility]) Nov 13, 2016 14:00
--- NOTE | 2016-11-13 14:58 | General Progress Note ---
Assessment/Plan Problem List: (1) Cystitis ICD Codes: N30.90 - Cystitis, unspecified without hematuria SNOMED: 94082287 (2) Urinary tract infection ICD Codes: N39.0 - Urinary tract infection, site not specified SNOMED: 35169876 (3) Dizziness ICD Codes: R42 - Dizziness and giddiness SNOMED: 726476683, 281125615 (4) Psychiatric disorder ICD Codes: F99 - Mental disorder, not otherwise specified SNOMED: 87278781, 995367380 (5) prostate ca, r/o metastatic disease. (6) transient lightheadedness, hiccups, abdomen pain. (7) bradycardia r/o presyncope (8) Hypoalbuminemia ICD Codes: E88.09 - Other disorders of plasma-protein metabolism, not elsewhere classified SNOMED: 735186371 (9) GERD (gastroesophageal reflux disease) ICD Codes: K21.9 - Gastro-esophageal reflux disease without esophagitis SNOMED: 645914350 (10) Nausea ICD Codes: R11.0 - Nausea SNOMED: 992766308 (11) Bradycardia ICD Codes: R00.1 - Bradycardia, unspecified SNOMED: 68151695 Status: stable, progressing, tolerating diet Assessment/Plan ot pt diet cardio f/u cbc bmp am Subjective Constitutional: Reports: weakness Allergies: Coded Allergies: No Known Allergies (Unverified , 07/18/12) All Systems: reviewed and negative except above Subjective sitting calm Objective Last 24 Hour Vital Signs Date Time Temp Pulse Resp B/P Pulse Ox O2 Delivery O2 Flow Rate FiO2 11/13/16 12:00 64 11/13/16 11:31 97.0 66 18 140/82 98 Room Air 11/13/16 09:00 61 64 75 11/13/16 08:00 71 11/13/16 07:32 97.0 54 18 143/82 97 Room Air 11/13/16 04:00 53 11/13/16 04:00 97.7 50 20 135/75 Room Air 11/13/16 00:00 66 11/13/16 00:00 97.0 60 20 112/50 96 Room Air 11/12/16 20:00 97.7 55 19 145/78 98 Room Air 11/12/16 20:00 52 11/12/16 17:00 56 59 64 11/12/16 16:00 60 3/31/17 16:00 97.5 56 20 129/72 97 Room Air Intake and Output 11/12/16 11/13/16 19:00 07:00 Intake Total 480 ml 1080 ml Output Total 500 ml Balance -20 ml 1080 ml Intake Oral 480 ml 480 ml IV Total 600 ml Output Urine Total 500 ml # Voids 2 Laboratory Tests 11/13/16 06:50: White Blood Count 7.7, Red Blood Count 4.57L, Hemoglobin 14.1L, Hematocrit 43.5 , Mean Corpuscular Volume 95, Mean Corpuscular Hemoglobin 30.8, Mean Corpuscular Hemoglobin Concent 32.4, Red Cell Distribution Width 13.0, Platelet Count 268, Mean Platelet Volume 6.1L, Neutrophils (%) (Auto) 53.1, Lymphocytes ( %) (Auto) 29.5, Monocytes (%) (Auto) 9.6, Eosinophils (%) (Auto) 6.8H, Basophils (%) (Auto) 1.1, Sodium Level 141, Potassium Level 3.9, Chloride Level 101, Carbon Dioxide Level 26, Anion Gap 14, Blood Urea Nitrogen 11, Creatinine 0.8, Estimat Glomerular Filtration Rate > 60, Glucose Level 101, Calcium Level 8.9, Troponin I < 0.30, Pro-B-Type Natriuretic Peptide 723H, Thyroid Stimulating Hormone (TSH) 0.614, Free Thyroxine 1.15 Height (Feet): 5 Height (Inches): 9.00 Weight (Pounds): 140 General Appearance: lethargic EENT: normal ENT inspection Neck: normal alignment Cardiovascular: normal peripheral pulses, normal rate, regular rhythm Respiratory/Chest: chest wall non-tender, lungs clear, normal breath sounds Abdomen: normal bowel sounds, non tender, soft Extremities: normal inspection Edema: no edema noted Arm (L), no edema noted Arm (R), no edema noted Leg (L), no edema noted Leg (R), no edema noted Pedal (L), no edema noted Pedal (R), no edema noted Generalized Neurologic: responsive, motor weakness Skin: normal pigmentation, warm/dry JORDANA HORTON Nov 13, 2016 14:58
[2016-11-13] MEDS ORDERED: D5 1/2NS 1000ml IV ONE (17:42)
[2016-11-14 04:30] VITALS: BP 145/74
[2016-11-14 05:30] VITALS: BP 145/74
[2016-11-14 08:00] VITALS: BP 131/69
--- NOTE | 2016-11-14 08:28 | Consultation ---
DATE OF CONSULTATION: 11/13/2016 NOTE: "VERY POOR AUDIO QUALITY/INCOMPREHENSIBLE" CONSULTING PHYSICIAN: Rosemary Moss M.D. TREATING ATTENDING PHYSICIAN: Bill Meza D.O. HISTORY OF PRESENT ILLNESS: The patient is a 71-year-old male patient. The patient . He was brought to the hospital for dizziness and bradycardia. He was very dizzy and lightheaded . In the hospital, the patient has been irritable, agitated, . For this reason, has requested psychotherapeutic services. Upon assessment, the patient states that he does have diagnosis of paranoid schizophrenia. The patient has while checking his records from his . The patient at this time. He denies suicidal or homicidal thoughts of ideation. He denies auditory or visual hallucinations, although he does appear internally preoccupied. PAST MEDICAL HISTORY: History of prostate cancer and bradycardia. ALLERGIES: The patient has no known drug allergies. SUBSTANCE USE HISTORY: The patient has . The patient does have history of alcoholism . PSYCHIATRIC HISTORY: The patient has history of paranoid schizophrenia. The patient has been treated with psychotropic medications in the past. SOCIAL HISTORY: The patient is a 71-year-old male financially sustained through Medicare at this time. MENTAL STATUS EXAMINATION: The patient is alert and oriented x3 to person, place, and time. Mood is agitated, affect is congruent. Thought process very disorganized. Thought content . The patient has poor attention and concentration. Poor insight, judgment, and impulse control. Denies suicidal or homicidal thoughts of ideation. DIAGNOSES: AXIS I Paranoid schizophrenia. AXIS II Deferred. AXIS III Per History and Physical. AXIS IV Problems with social environment. AXIS V Rosemary Moss PsyD. DR: Imelda JOB#: [id number] CC:
[2016-11-14] MEDS: Aspirin Baby 81mg ORAL SCH (09:32)
[2016-11-14] MEDS: Pantoprazole Inj IVP SCH (09:33)
[2016-11-14] MEDS: Sertraline 50mg tab ORAL SCH (09:33)
[2016-11-14] MEDS: Heparin 5000 units/ml inj SUBQ SCH (09:34)
--- NOTE | 2016-11-14 09:47 | General Progress Note ---
Assessment/Plan Problem List: (1) Cystitis ICD Codes: N30.90 - Cystitis, unspecified without hematuria SNOMED: 15371647 (2) Urinary tract infection ICD Codes: N39.0 - Urinary tract infection, site not specified SNOMED: 12987993 (3) Dizziness ICD Codes: R42 - Dizziness and giddiness SNOMED: 410805477, 129013339 (4) Psychiatric disorder ICD Codes: F99 - Mental disorder, not otherwise specified SNOMED: 76234290, 861790605 (5) prostate ca, r/o metastatic disease. (6) transient lightheadedness, hiccups, abdomen pain. (7) bradycardia r/o presyncope (8) Hypoalbuminemia ICD Codes: E88.09 - Other disorders of plasma-protein metabolism, not elsewhere classified SNOMED: 253948750 (9) GERD (gastroesophageal reflux disease) ICD Codes: K21.9 - Gastro-esophageal reflux disease without esophagitis SNOMED: 690755299 (10) Nausea ICD Codes: R11.0 - Nausea SNOMED: 746148609 (11) Bradycardia ICD Codes: R00.1 - Bradycardia, unspecified SNOMED: 17477829 Status: stable, progressing, tolerating diet Assessment/Plan ot pt diet cardio f/u cbc bmp am dc w hh Subjective Constitutional: Reports: weakness Allergies: Coded Allergies: No Known Allergies (Unverified , 07/18/12) All Systems: reviewed and negative except above Subjective sitting calm Objective Last 24 Hour Vital Signs Date Time Temp Pulse Resp B/P Pulse Ox O2 Delivery O2 Flow Rate FiO2 11/14/16 08:00 97.5 64 18 131/69 97 Room Air 11/14/16 06:24 53 55 64 11/14/16 05:30 97.3 59 20 145/74 95 Room Air 11/14/16 04:30 97.3 59 20 145/74 95 Room Air 11/13/16 20:00 97.7 55 20 138/76 97 Room Air 11/13/16 16:39 56 57 59 11/13/16 16:00 97.5 62 18 143/82 97 Room Air 11/13/16 12:00 64 11/13/16 11:31 97.0 66 18 140/82 98 Room Air Intake and Output 11/13/16 11/14/16 19:00 07:00 Intake Total 780 ml Output Total 300 ml Balance 480 ml Intake Oral 480 ml IV Total 300 ml Output Urine Total 300 ml # Voids 1 2 # Bowel Movements 1 Height (Feet): 5 Height (Inches): 9.00 Weight (Pounds): 140 General Appearance: alert EENT: normal ENT inspection Neck: normal alignment Cardiovascular: normal peripheral pulses, normal rate, regular rhythm Respiratory/Chest: chest wall non-tender, lungs clear, normal breath sounds Abdomen: normal bowel sounds, non tender, soft Extremities: normal inspection Edema: no edema noted Arm (L), no edema noted Arm (R), no edema noted Leg (L), no edema noted Leg (R), no edema noted Pedal (L), no edema noted Pedal (R), no edema noted Generalized Neurologic: responsive, motor weakness Skin: normal pigmentation, warm/dry JORDANA HORTON Nov 14, 2016 09:47
--- NOTE | 2016-11-14 09:56 | General Progress Note ---
Assessment/Plan Problem List: (1) Bradycardia ICD Codes: R00.1 - Bradycardia, unspecified SNOMED: 98033979 (2) GERD (gastroesophageal reflux disease) ICD Codes: K21.9 - Gastro-esophageal reflux disease without esophagitis SNOMED: 319624639 (3) Hypoalbuminemia ICD Codes: E88.09 - Other disorders of plasma-protein metabolism, not elsewhere classified SNOMED: 087116716 (4) Schizophrenia ICD Codes: F20.9 - Schizophrenia, unspecified SNOMED: 34495476 Assessment/Plan psych input appreciated CT and us reviewed pend dc Subjective ROS Limited/Unobtainable: Yes Allergies: Coded Allergies: No Known Allergies (Unverified , 07/18/12) Subjective no event Objective Last 24 Hour Vital Signs Date Time Temp Pulse Resp B/P Pulse Ox O2 Delivery O2 Flow Rate FiO2 11/14/16 08:00 97.5 64 18 131/69 97 Room Air 11/14/16 06:24 53 55 64 11/14/16 05:30 97.3 59 20 145/74 95 Room Air 11/14/16 04:30 97.3 59 20 145/74 95 Room Air 11/13/16 20:00 97.7 55 20 138/76 97 Room Air 11/13/16 16:39 56 57 59 11/13/16 16:00 97.5 62 18 143/82 97 Room Air 11/13/16 12:00 64 11/13/16 11:31 97.0 66 18 140/82 98 Room Air Intake and Output 11/13/16 11/14/16 19:00 07:00 Intake Total 780 ml Output Total 300 ml Balance 480 ml Intake Oral 480 ml IV Total 300 ml Output Urine Total 300 ml # Voids 1 2 # Bowel Movements 1 Height (Feet): 5 Height (Inches): 9.00 Weight (Pounds): 140 General Appearance: alert EENT: normal ENT inspection Neck: supple Cardiovascular: normal peripheral pulses Respiratory/Chest: lungs clear Abdomen: normal bowel sounds, non tender, soft Extremities: non-tender TRACY HUNT Nov 14, 2016 09:56
--- NOTE | 2016-11-14 11:43 | Pulmonology Progress Note ---
Assessment/Plan Assessment/Plan ASSESSMENT symptomatic bradycardia dizziness ( orthostatic) likely 2 to dehydration dehydration prostate Ca with radiation history of bipolar disorder and schizophrenia. PLAN OF CARE tele IVF on tele SR cardio follows CXR negative O2 HHN prn troponin negative dizziness resolved s/p IVF dizziness orthostatic , likely 2 to dehydration ( VS + for orthostatic) abdominal US negative CT abdomen and pelvis no evidence fo metastasis - lipase/amylase WNL, LFT stable, mild elevation in CEA-4.0 GI follows DVT, GI prophylaxis pain management transfer to MS floor dc planning per PMD case discussed and evaluated by supervising physician Subjective Allergies: Coded Allergies: No Known Allergies (Unverified , 07/18/12) Subjective denies chest pain, SOB, dizziness, HR stable, on tele SR/SB Objective Last 24 Hour Vital Signs Date Time Temp Pulse Resp B/P Pulse Ox O2 Delivery O2 Flow Rate FiO2 11/14/16 08:00 97.5 64 18 131/69 97 Room Air 11/14/16 06:24 53 55 64 11/14/16 05:30 97.3 59 20 145/74 95 Room Air 11/14/16 04:30 97.3 59 20 145/74 95 Room Air 11/13/16 20:00 97.7 55 20 138/76 97 Room Air 11/13/16 16:39 56 57 59 11/13/16 16:00 97.5 62 18 143/82 97 Room Air 11/13/16 12:00 64 Intake and Output 11/13/16 11/14/16 19:00 07:00 Intake Total 780 ml Output Total 300 ml Balance 480 ml Intake Oral 480 ml IV Total 300 ml Output Urine Total 300 ml # Voids 1 2 # Bowel Movements 1 Objective General Appearance: WD/WN, no acute distress HEENT: normocephalic, atraumatic, anicteric, mucous membranes moist Respiratory/Chest: lungs clear, no respiratory distress, no accessory muscle use Cardiovascular: normal peripheral pulses, normal rate - SR on tele , regular rhythm Abdomen: normal bowel sounds, soft, non tender, non distended Extremities: no edema, pedal pulses normal Neurologic/Psychiatric: alert, oriented x 3, responsive, normal mood/affect Musculoskeletal: normal muscle bulk Current Medications Medications (Trade) Dose Ordered Sig/Dequan Route PRN Reason Start Time Stop Time Status Last Admin Dose Admin Acetaminophen (Tylenol) 650 mg Q4H PRN ORAL T>100.5 11/11/16 19:15 12/11/16 19:14 Al Hydroxide/Mg Hydroxide (Mylanta II) 30 ml Q6H PRN ORAL dyspepsia 11/11/16 19:15 12/11/16 19:14 Aspirin (ASA) 81 mg DAILY ORAL 11/12/16 09:00 12/12/16 08:59 11/14/16 09:32 Dextrose (Dextrose 50%) STAT PRN IV Hypoglycemia 11/11/16 19:15 12/11/16 19:14 Diphenhydramine HCl (Benadryl) 25 mg Q6H PRN ORAL Itching/Pruritis 11/11/16 19:15 12/11/16 19:14 Heparin Sodium (Porcine) (Heparin 5000 units/ml) 5,000 units EVERY 12 HOURS SUBQ 11/11/16 21:00 12/11/16 20:59 11/14/16 09:34 Morphine Sulfate (Morphine Sulfate) 2 mg Q4H PRN IVP Severe Pain (Pain Scale 7-10) 11/11/16 19:15 11/18/16 19:14 Nitroglycerin (Ntg) 0.4 mg Q5M X 3 DOSES PRN SL Prn Chest Pain 11/11/16 19:15 12/11/16 19:14 Ondansetron HCl (Zofran) 4 mg Q6H PRN IVP Nausea & Vomiting 11/11/16 19:15 12/11/16 19:14 Pantoprazole (Protonix) 40 mg DAILY IVP 11/12/16 09:00 12/12/16 08:59 11/14/16 09:33 Polyethylene Glycol (Miralax) 17 gm HSPRN PRN ORAL Constipation 11/11/16 19:15 12/11/16 19:14 Quetiapine Fumarate (SEROquel) 25 mg EVERY 12 HOURS ORAL 11/11/16 21:00 12/11/16 20:59 11/14/16 09:33 Sertraline HCl (Zoloft) 50 mg DAILY ORAL 11/12/16 09:00 12/12/16 08:59 11/14/16 09:33 Temazepam (Restoril) 15 mg HSPRN PRN ORAL Insomnia 11/11/16 21:00 11/18/16 20:59 [facility] ([facility]Gaby PORTILLO Nov 14, 2016 11:43
--- NOTE | 2016-11-15 00:29 | Progress Note ---
DATE: 11/14/2016 SUBJECTIVE: This is a male patient who is 71-year-old, confused and disorganized. PLAN: I am going to continue treatment with psychotropic medications to prevent any further decline in his cognition. Chart was reviewed and discussed with staff. Seen and assessed at the bedside. We will continue him on Seroquel and Zoloft and psychiatry cleared him for discharge. Jaun Canchola M.D. DR: STEPHANIE JOB#: [id number] CC:
--- NOTE | 2016-11-15 00:29 | Progress Note ---
SUBJECTIVE: This is a 71-year-old with a history of bradycardia. PLAN: Plan for this patient to continue treatment with psychotropic medications to prevent any further decline in cognition. Continue . Jaun Canchola M.D. DR: Pipe JOB#: [id number] CC:
--- NOTE | 2016-11-15 03:38 | Consultation ---
DATE OF CONSULTATION: 11/12/2016 REQUESTING PHYSICIAN: Bill Meza D.O. HISTORY OF PRESENT ILLNESS: This is a 71-year-old male patient with bradycardia, dizziness, and confusion. This patient was admitted to [facility]. This patient came in because of dizziness, bradycardia, lightheadedness, easily irritable, and agitated. He was previously diagnosed with paranoid schizophrenia, but he does appear confused and internally preoccupied. ALLERGIES: No known drug allergies. PAST MEDICAL HISTORY: Bradycardia, prostate cancer. PAST PSYCHIATRIC HISTORY: History of paranoid schizophrenia and treated with psychotropic medications. SUBSTANCE ABUSE HISTORY: He is positive for alcohol use. MENTAL STATUS EXAMINATION: This is a 71-year-old male with psychomotor retardation. Mood is depressed. Affect is guarded and restricted. Thought process is disorganized and illogical. He denies any current suicidal or homicidal thoughts. Insight and judgment is poor. The reason why this patient was admitted was because of the weakness, dizziness, and bradycardia, that was the main reason why he was admitted, not just the medical problems. PLAN: Plan for this patient is to continue him on Zoloft 50 mg daily and Seroquel 25 mg. He will continue to be followed by Psychiatry throughout his hospital course. Chart reviewed and discussed with staff. The patient is seen and assessed at bedside. Jaun Canchola M.D. DR: ERICA JOB#: [id number] CC:
--- NOTE | 2016-11-16 10:28 | Discharge Summary ---
Discharge Summary Hospital Course Date of Admission Nov 11, 2016 at 18:36 Date of Discharge Nov 14, 2016 at 12:50 Admitting Diagnosis dizziness, bradycardia HPI Valeriano Caro is a 71 year old male who was admitted on Nov 11, 2016 at 18: 36 for Dizziness, Bradycardia Hospital Course dc summary #[id number] Discharge Medications Continued Medications: Aspirin* (Aspirin*) 81 Mg Tab.chew 81 MG ORAL DAILY, TAB Ca Carbonate/Vitamin D3/Vit K (Calcium + D Soft Chewable Tab) 1 Each Tab.chew 1 EACH PO, TAB Quetiapine Fumarate* (Seroquel*) 25 Mg Tablet MG PO Sertraline Hcl* (Zoloft*) 50 Mg Tablet MG PO Discontinued Medications: Cephalexin* (Keflex*) 500 Mg Capsule 500 MG ORAL TID, #21 CAP Trimethoprim/Sulfamethoxazole 160/800* (Bactrim Ds Tablet*) 1 Each Tablet 1 TAB ORAL Q12H, #28 TAB 0 Refills Discharge Condition Upon Discharge: stable Discharge Disposition Patient was discharged to Home with Home Health(06) Discharge Diagnoses: Antonio (Sharon)Gaby NP Nov 16, 2016 10:28
--- NOTE | 2016-11-16 11:36 | Cardiology Report ---
APPROVED REPORT EXAM: Two-dimensional and M-mode echocardiogram with Doppler and color Doppler. INDICATION Syncope M-Mode DIMENSIONS IVSd0.8 (0.7-1.1cm)Left Atrium (MM)3.5 (1.6-4.0cm) LVDd4.8 (3.5-5.6cm)Aortic Root3.4 (2.0-3.7cm) PWd0.8 (0.7-1.1cm)Aortic Cusp Exc.2.0 (1.5-2.0cm) LVDs2.8 (2.5-4.0cm) PWs1.4 cm Normal left ventricular chamber size, systolic function and wall motion. Left ventricular ejection fraction estimated to be 55 %. No evidence of ventricular hypertrophy. No evidence of pericardial fat or effusion. Mild left atrial enlargement by 2D. Right cardiac chamber sizes are within normal limits. Mild focal aortic valve sclerosis with adequate cusp excursion. Mildly thickened mitral valve leaflets with normal excursion. Mild mitral annulus and aortic root calcification. Pulmonic valve not well visualized. Normal tricuspid valve structure. IVC at normal size with physiologic collapse. A color flow and spectral Doppler study was performed and revealed: No aortic regurgitation. Moderate mitral regurgitation. Mitral diastolic velocities shows E/A near equalization suggesting beginning of reduced left ventricular relaxation c/w diastolic dysfunction. Mild tricuspid regurgitation. Tricuspid systolic velocities suggests peak right ventricular systolic pressure of 41 mmHg, consistent with mild pulmonary hypertension.
--- NOTE | 2016-11-17 02:38 | Discharge Summary 2 SIG ---
DATE OF ADMISSION: 11/11/2016 DATE OF DISCHARGE: 11/14/2016 REASON FOR ADMISSION: 71-year-old male presented to the emergency room with complaints of of dizziness and weakness as well as abdominal pain. The patient reported symptoms started around 2:00 p.m. He reported epigastric pain, sharp, nonradiating, 7/10 on a scale 1 to 10. He noted nausea, but denied vomiting. He denied chest pain. Denied shortness of breath. He reported feeling lightheaded and dizzy. Denied blackouts. Denied loss of consciousness. He reported that dizziness was even while when he was resting. Workup in the emergency room revealed bradycardia. ECG with sinus bradycardia, heart rate -54. The patient was afebrile. Blood pressure was stable. Pulse oximetry was stable on the room air. No leukocytosis. No anemia. Urinalysis negative for UTI. Electrolytes stable. Elevated anion gap of 18. Stable LF. negative troponin. Lipase stable. The patient admitted for further management. ADMITTING DIAGNOSES: 1. Bradycardia. 2. Dizziness. HOSPITAL COURSE: The patient was admitted to telemetry floor. Cardiology, Neurology, GI, and Psychiatry consulted. The patient initially remained in sinus bradycardia. Echocardiogram revealed preserved ejection fraction of 55%, right ventricular systolic pressure of 41 consistent with mild pulmonary hypertension. There was evidence of moderate mitral regurgitation. Serial troponin negative. EKG revealed no ischemic changes. The patient was ruled out for acute IA. Bradycardia resolved. Orthostatic vital signs were checked and some appeared to have orthostatic changes. Lightheadedness and dizziness presumed to be due to the orthostatic secondary to dehydration. The patient initially started on the IV fluids. Dizziness subsided. Neurologist seen and evaluated the patient. Per neurologist, no evidence of transient ischemic attack, stroke, or seizures. The patient has a history of prostate cancer with the radiation. CT of the abdomen and pelvis revealed small versus absent prostate. Nonspecific liver lesion. Neoplasm not excluded. Ultrasound correlation was recommended. Abdominal ultrasound was essentially negative. Psychiatrist seen the patient and optimized psychiatric medication regimen due to the history of bipolar disorder and schizophrenia. GI seen the patient. The patient with GERD. GI recommended symptomatic treatment: PPI, antiemetic as needed, advance diet as tolerated. Lipase was negative. Pain management provided. Bowel regimen provided. Chest x-ray was negative. Supplemental oxygen and pulmonary toilet provided as needed. Pulse oximetry stable on room air. Thyroid panel was stable. Mild elevation in CEA - 4.0. The patient was stable for discharge. DISCHARGE DIAGNOSES: 1. Symptomatic bradycardia, resolved. 2. Transient lightheadedness and dizziness(orthostatic) due to dehydration. 3. Dehydration. 4. Prostate cancer , s/p radiation. 5. History of bipolar disorder and schizophrenia. 6. Gastroesophageal reflux disease. 7. Mild pulmonary hypertension. 8. Moderate mitral regurgitation. DISCHARGE MEDICATIONS: See medication reconciliation list. DISCHARGE INSTRUCTIONS: The patient discharged home with home health. Follow up with the primary medical doctor. Recommended GI procedure as outpatient as per PMD referral. Bill Meza D.O. I have been assigned to dictate discharge summary on this account and I was not involved in the patient's management. Gaby Moreiramyrna N.PDaniella DR: Dorene JOB#: [id number] CC: RMOAN
[2016-12-04] MEDS ORDERED: TYLENOL650 MG/20. ORAL (11:03)
[2016-12-04] MEDS ORDERED: CLONIDINE HCL0.1 MG PO (11:09)
[2016-12-04] MEDS ORDERED: PROMETHAZINE-C118 M1 ORAL (11:10)
[2016-12-04] MEDS ORDERED: DUONEB 0.5-3(2.53 ML HHN (11:11)
[2016-12-04] MEDS ORDERED: ATIVAN0.5 MG ORAL (11:11)
[2016-12-04] MEDS ORDERED: NITROGLYCERIN0.4 MG SL (11:26)
[2016-12-04] MEDS ORDERED: MIRALAX17 G2 ORAL (11:27)
[2016-12-04] MEDS ORDERED: RESTORIL15 MG ORAL (11:27)
[2016-12-04] MEDS ORDERED: ZOFRAN ODT4 MG ORAL (11:27)
[2016-12-04] MEDS ORDERED: NORCO 10-325 T1 EACH ORAL (11:28)
== END 2016-11-14 12:50 | disposition home health service (06) | DRG 309 ==
LOC: EDBD 15:22 → EMR 17:45 → 2E 18:36 → EDBEDREQ 20:45
DX: R00.1 Bradycardia, unspecified (principal); N39.0 Urinary tract infection, site not specified; I50.9 Heart failure, unspecified; E86.0 Dehydration; E88.09 Other disorders of plasma-protein metabolism, not elsewhere classified; C61 Malignant neoplasm of prostate; F20.9 Schizophrenia, unspecified; F31.9 Bipolar disorder, unspecified; K21.9 Gastro-esophageal reflux disease without esophagitis; R11.0 Nausea; Z85.46 Personal history of malignant neoplasm of prostate; Z92.3 Personal history of irradiation; I25.2 Old myocardial infarction; R42 Dizziness and giddiness
CPT/HCPCS: 36415; 71010; 74176; 76700; 80048; 80053; 81003; 82150; 82378; 82550; 82553; 82607; 82962; 83690; 83880; 84153; 84439; 84443; 84484; 85025; 85651; 85730; 86039; 93005; 93306; J2405

== ENCOUNTER 2017-04-09 06:47 | Inpatient (IN) | payer MEDICARE, OTHER ==
[~2017-04-09] VITALS: Ht 177.8 cm; Wt 59.4 kg
[~2017-04-09 06:47] MED LIST changes: +ATIVAN0.5 MG ORAL; +CLONIDINE HCL0.1 MG PO; +DUONEB 0.5-3(2.53 ML HHN; +MIRALAX17 G2 ORAL; +NITROGLYCERIN0.4 MG SL; +NORCO 10-325 T1 EACH ORAL; +PROMETHAZINE-C118 M1 ORAL; +RESTORIL15 MG ORAL; +TYLENOL650 MG/20. ORAL; +ZOFRAN ODT4 MG ORAL
[2017-04-09 06:56] VITALS: BP 121/75
[2017-04-09] MEDS ORDERED: XANAX2 MG ORAL (06:57)
[2017-04-09] MEDS ORDERED: SEROQUEL100 MG ORAL (06:57)
[2017-04-09 07:19] LABS: BASOPHILS % (AUTO) 1.2 % (0.0-2.0); EOSINOPHILS % (AUTO) 4.7 % (0.0-3.0); LYMPHOCYTES % (AUTO) 27.2 % (20.0-45.0); MEAN CORPUSCULAR HEMOGLOBIN 32.4 PG (27.0-31.0); MEAN CORPUSCULAR HGB CONC 33.4 G/DL (32.0-36.0); MEAN CORPUSCULAR VOLUME 97 FL (80-99); MEAN PLATELET VOLUME 5.9 FL (6.5-10.1); MONOCYTES % (AUTO) 8.8 % (1.0-10.0); NEUTROPHILS % (AUTO) 58.1 % (45.0-75.0); PLATELET COUNT 298 K/UL (150-450); RED BLOOD COUNT 4.14 M/UL (4.70-6.10); RED CELL DISTRIBUTION WIDTH 12.3 % (11.6-14.8); WHITE BLOOD COUNT 9.1 K/UL (4.8-10.8)
[2017-04-09 07:35] VITALS: BP 127/73
[2017-04-09 07:38] LABS: ALANINE AMINOTRANSFERASE 14 U/L (3-41); ALBUMIN/GLOBULIN RATIO 1.2 (1.0-2.7); ANION GAP 9 (5-15); ASPARTATE AMINO TRANSFERASE 20 U/L (5-40); CALCIUM 9.3 mg/dL (8.6-10.2); CARBON DIOXIDE 27 mEQ/L (20-30); CHLORIDE 102 mEQ/L (98-107); CREATININE 0.8 mg/dL (0.7-1.2); GLOMERULAR FILTRATION RATE > 60 mL/min (>60); HEMOLYSIS 6; SODIUM 138 mEQ/L (135-145); TOTAL PROTEIN 7.4 g/dL (6.6-8.7); TROPONIN I < 0.30 ng/mL (<=0.30)
[2017-04-09 07:48] LABS: CKMB 3.7 ng/mL (< 6.7)
--- NOTE | 2017-04-09 08:27 | Diagnostic Imaging Report ---
Indication: Chest pain Comparison: 12/01/16 A single view chest radiograph was obtained. Findings: Lungs are clear. Borderline cardiomegaly is present. Bones are osteopenic. Impression: No acute disease
[2017-04-09] MEDS ORDERED: LORazepam Inj 2mg/ml 1ml IV ONE (08:30)
--- NOTE | 2017-04-09 08:34 | Emergency Room Report ---
History of Present Illness General Chief Complaint: Chest Pain Source: Patient Present Illness HPI 71YOM BIBEMS for chest pain radiating down left arm for 20 minutes after doing crack cocaine. Smokes crack regularly. Also MJ. Denies ETOH, other drugs No history of HTN, DM, HLD Denies previous AMI Pain is 10/10 Got ASA from EMS Allergies: Coded Allergies: No Known Allergies (Unverified , 07/18/12) Patient History Past Medical History: none Past Surgical History: none Pertinent Family History: none Social History: Reports: smoking, drug use Immunizations: UTD Reviewed Nursing Documentation: PMH: Agreed, PSxH: Agreed Nursing Documentation-PMH Past Medical History: No History, Except For Hx Cardiac Problems: No Hx Hypertension: Yes Hx COPD: Yes Hx Cancer: Yes Hx Gastrointestinal Problems: Yes History Of Psychiatric Problem: Yes - Schizoaffective Hx Neurological Problems: No Review of Systems All Other Systems: negative except mentioned in HPI Physical Exam Vital Signs Date Time Temp Pulse Resp B/P (MAP) Pulse Ox O2 Delivery O2 Flow Rate FiO2 04/09/17 06:41 98.1 66 15 121/75 99 Room Air Sp02 EP Interpretation: reviewed, normal General Appearance: normal inspection, well appearing, no apparent distress, alert, GCS 15, non-toxic, cachetic Head: normocephalic, atraumatic Eyes: bilateral eye PERRL, bilateral eye EOMI ENT: normal ENT inspection, hearing grossly normal, normal voice Neck: normal inspection, full range of motion, supple, no bony tend Respiratory: normal inspection, lungs clear, normal breath sounds, no respiratory distress, no retraction, no wheezing, chest symmetrical, palpation of chest normal Cardiovascular #1: regular rate, rhythm, no edema Gastrointestinal: normal inspection, normal bowel sounds, non tender, soft, no guarding, no hernia Genitourinary: no CVA tenderness Musculoskeletal: normal inspection, back normal, normal range of motion, Krystyna' s Sign negative Neurologic: normal inspection, alert, oriented x3, responsive, milk handler III-XII nml as tested, motor strength/tone normal, speech normal Psychiatric: normal inspection, judgement/insight normal, mood/affect normal Skin: normal inspection, normal color, no rash Medical Decision Making Medicare Attestation I Ricardo Banks MD hereby attest that the medical record entry for date of service, 04/09/17 accurately reflects signatures/notations that I made in my capacity as MD when I treated/diagnosed the above listed Medicare beneficiary. I attest that this information is true, accurate and complete to the best of my knowledge. I understand that any falsification, omission, or concealment of material fact may subject me to administrative, civil, or criminal liability. This patient warrants hospital admission for extreme of age and has a condition that cannot be treated as outpatient. Diagnostic Impression: Primary Impression: Chest pain Qualified Codes: R07.9 - Chest pain, unspecified Additional Impression: Cocaine abuse ER Course ECG NSR Troponin 0 CXR negative for PTX, PNA, CHF Labs otherwise normal Utox + for cocaine, MJ Was given ASA by EMS Ativan given in ED Endorsed to Dr Meza for tele admit at 834am EKG Diagnostic Results Rate: normal Rhythm: NSR ST Segments: no acute changes ASA given to the pt in ED: No Rhythm Strip Diag. Results EP Interpretation: yes Rate: 56 Rhythm: NSR, no PVC's, no ectopy Chest X-Ray Diagnostic Results Chest X-Ray Diagnostic Results : Chest X-Ray Ordered: Yes # of Views/Limited/Complete: 1 View Indication: Chest Pain EP Interpretation: Yes Interpretation: no consolidation, no effusion, no pneumothorax, no acute cardiopulmonary disease Impression: No acute disease Interpreting ER Provider: Dr Ricardo Guy MD Last Vital Signs Date Time Temp Pulse Resp B/P (MAP) Pulse Ox O2 Delivery O2 Flow Rate FiO2 04/09/17 07:35 98.0 57 16 127/73 98 Room Air Disposition: ADMITTED INPATIENT Condition: Serious Referrals: NOT CHOSEN IPA/,REFERRING (PCP) RICARDO BANKS M.D. Apr 09, 2017 08:34
[2017-04-09] MEDS ORDERED: Enalaprilat 2.5mg/2ml Inj IV PRN (09:15)
[2017-04-09] MEDS ORDERED: Ketorolac 30mg Inj IV PRN (09:15)
[2017-04-09] MEDS ORDERED: LORazepam 0.5mg tab ORAL PRN (09:15)
[2017-04-09] MEDS ORDERED: DuoNeb 0.5-3(2.5)mg/3ml neb HHN PRN (09:15)
[2017-04-09] MEDS ORDERED: Miralax 17gm pkt ORAL PRN (09:15)
[2017-04-09] MEDS ORDERED: Nitroglycerin Subl 0.4mg tab (Bottle Of 25) SL PRN (09:15)
[2017-04-09] MEDS ORDERED: Morphine Sulfate 2mg/ml Inj IVP PRN (09:15)
[2017-04-09] MEDS ORDERED: Diltiazem 25mg/5ml IV PRN (09:15)
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
[2017-04-09 16:00] VITALS: BP 131/78
--- NOTE | 2017-04-09 18:10 | Cardiology Progress Note ---
Assessment/Plan Assessment/Plan The patient is seen and examined, full consult note is dictated. Objective Last 24 Hour Vital Signs Date Time Temp Pulse Resp B/P (MAP) Pulse Ox O2 Delivery O2 Flow Rate FiO2 04/09/17 16:00 97.4 64 21 131/78 96 Room Air 04/09/17 12:00 60 04/09/17 10:23 68 04/09/17 09:50 70 18 118/75 100 Room Air 04/09/17 07:35 98.0 57 16 127/73 98 Room Air 04/09/17 06:56 66 15 Room Air 04/09/17 06:56 98.1 66 15 121/75 99 Room Air 04/09/17 06:41 98.1 66 15 121/75 99 Room Air Laboratory Tests Test 04/09/17 06:50 White Blood Count 9.1 K/UL (4.8-10.8) Red Blood Count 4.14 M/UL (4.70-6.10) L Hemoglobin 13.4 G/DL (14.2-18.0) L Hematocrit 40.2 % (42.0-52.0) L Mean Corpuscular Volume 97 FL (80-99) Mean Corpuscular Hemoglobin 32.4 PG (27.0-31.0) H Mean Corpuscular Hemoglobin Concent 33.4 G/DL (32.0-36.0) Red Cell Distribution Width 12.3 % (11.6-14.8) Platelet Count 298 K/UL (150-450) Mean Platelet Volume 5.9 FL (6.5-10.1) L Neutrophils (%) (Auto) 58.1 % (45.0-75.0) Lymphocytes (%) (Auto) 27.2 % (20.0-45.0) Monocytes (%) (Auto) 8.8 % (1.0-10.0) Eosinophils (%) (Auto) 4.7 % (0.0-3.0) H Basophils (%) (Auto) 1.2 % (0.0-2.0) Sodium Level 138 mEQ/L (135-145) Potassium Level 4.0 mEQ/L (3.4-4.9) Chloride Level 102 mEQ/L (98-107) Carbon Dioxide Level 27 mEQ/L (20-30) Anion Gap 9 (5-15) Blood Urea Nitrogen 11 mg/dL (7-23) Creatinine 0.8 mg/dL (0.7-1.2) Estimat Glomerular Filtration Rate > 60 mL/min (>60) Glucose Level 77 mg/dL (74-106) Calcium Level 9.3 mg/dL (8.6-10.2) Total Bilirubin 0.3 mg/dL (0.0-1.2) Aspartate Amino Transf (AST/SGOT) 20 U/L (5-40) Alanine Aminotransferase (ALT/SGPT) 14 U/L (3-41) Alkaline Phosphatase 69 U/L (40-129) Total Creatine Kinase 133 U/L (38-174) Creatine Kinase MB 3.7 ng/mL (< 6.7) Creatine Kinase MB Relative Index 2.7 Troponin I < 0.30 ng/mL (<=0.30) Total Protein 7.4 g/dL (6.6-8.7) Albumin 4.1 g/dL (3.5-5.2) Globulin 3.3 g/dL Albumin/Globulin Ratio 1.2 (1.0-2.7) Urine Opiates Screen Negative (NEGATIVE) Urine Barbiturates Screen Negative (NEGATIVE) Phencyclidine (PCP) Screen Negative (NEGATIVE) Urine Amphetamines Screen Negative (NEGATIVE) Urine Benzodiazepines Screen Negative (NEGATIVE) Urine Cocaine Screen Positive (NEGATIVE) H Urine Marijuana (THC) Screen Positive (NEGATIVE) H FLORIAN VALENCIA Apr 09, 2017 18:10
[2017-04-09 20:26] VITALS: BP 137/67
[2017-04-09] MEDS ORDERED: Heparin 5000 units/ml inj SUBQ SCH (21:00)
--- NOTE | 2017-04-09 22:15 | History and Physical Report ---
DATE OF ADMISSION: 04/09/2017 TIME OF EVALUATION: At 9 a.m. CONSULTANTS: 1. Don Vraela M.D. 2. Lima Santana M.D. 3. Jaun Canchola M.D. CHIEF COMPLAINT: Chest pain. BRIEF HISTORY: This 71-year-old man presents to [facility] with history of chest pain, substernal. The patient's history is obtained from chart. The patient is sleepy, refusing to answer questions. PAST MEDICAL HISTORY: Includes drug abuse, crack cocaine abuse, prostate CA, schizophrenia, and GERD. PAST SURGICAL HISTORY: Unknown. MEDICATIONS: Just lorazepam for now. ALLERGIES: Denies. SOCIAL HISTORY: Positive cocaine, positive crack use. REVIEW OF SYSTEMS: Currently, review of systems unavailable. PHYSICAL EXAMINATION: GENERAL: Lethargic in bed, refusing to answer questions. VITAL SIGNS: Temperature 98 degrees, pulse 57, respirations 16, and blood pressure 127/73. CARDIOVASCULAR: No murmur. LUNGS: Distant. Poor exchange. ABDOMEN: Bowel sounds are positive. Soft, nontender, and nondistended. EXTREMITIES: No cyanosis, clubbing, or edema. NEUROLOGIC: The patient moves all extremities, but slightly weak. LABORATORY DATA: Labs at this time show CBC with hemoglobin 13.4, otherwise CBC is normal. BMP is normal. Troponin is less than 0.3. Urine toxicology is positive for cocaine and marijuana. ASSESSMENT: 1. Chest pain. 2. Drug abuse, crack use. 3. History of prostate cancer. 4. Schizophrenia. 5. Gastroesophageal reflux disease. 6. Anemia. PLAN: 1. Continue premedications. 2. OT, PT, and dietary evaluation. 3. Troponin q.8 h. x3. 4. EKG in the morning. 5. We will get further history if possible. 6. Dr. Varela, Dr. Santana, and Dr. Canchola to consult. 7. We will continue to follow this patient. Bill Mzea D.O. DR: URBANO JOB#: [id number] CC:
[2017-04-10 03:49] VITALS: BP 146/78
--- NOTE | 2017-04-10 06:57 | General Progress Note ---
Assessment/Plan Problem List: (1) Psychiatric disorder ICD Codes: F99 - Mental disorder, not otherwise specified SNOMED: 96946894, 122045271 (2) GERD (gastroesophageal reflux disease) ICD Codes: K21.9 - Gastro-esophageal reflux disease without esophagitis SNOMED: 378746985 (3) Cocaine abuse ICD Codes: F14.10 - Cocaine abuse, uncomplicated SNOMED: 45627392, 351012688 (4) Chest pain ICD Codes: R07.9 - Chest pain, unspecified SNOMED: 22466930, 358269164 Qualifiers: Qualified Codes: R07.9 - Chest pain, unspecified (5) prostate ca, r/o metastatic disease. (6) Schizophrenia ICD Codes: F20.9 - Schizophrenia, unspecified SNOMED: 89659674 Status: stable, progressing, tolerating diet Assessment/Plan ot pt diet cardio psyc eval cbc bmp am Subjective Constitutional: Reports: weakness Allergies: Coded Allergies: No Known Allergies (Unverified , 07/18/12) All Systems: reviewed and negative except above Subjective sleepy calm in bed Objective Last 24 Hour Vital Signs Date Time Temp Pulse Resp B/P (MAP) Pulse Ox O2 Delivery O2 Flow Rate FiO2 04/10/17 04:31 56 04/10/17 03:49 97.7 60 21 146/78 95 Room Air 60 04/10/17 00:00 73 04/09/17 20:26 97.9 78 20 137/67 95 Room Air 04/09/17 16:00 68 04/09/17 16:00 97.4 64 21 131/78 96 Room Air 04/09/17 12:00 60 04/09/17 10:23 68 04/09/17 09:50 70 18 118/75 100 Room Air 04/09/17 07:35 98.0 57 16 127/73 98 Room Air Height (Feet): 5 Height (Inches): 10.00 Weight (Pounds): 131 General Appearance: lethargic EENT: normal ENT inspection Neck: normal alignment Cardiovascular: normal peripheral pulses, normal rate, regular rhythm Respiratory/Chest: chest wall non-tender, lungs clear, normal breath sounds Abdomen: normal bowel sounds, non tender, soft Extremities: normal inspection Edema: no edema noted Arm (L), no edema noted Arm (R), no edema noted Leg (L), no edema noted Leg (R), no edema noted Pedal (L), no edema noted Pedal (R), no edema noted Generalized Neurologic: motor weakness Skin: normal pigmentation, warm/dry JORDANA HORTON Apr 10, 2017 06:57
[2017-04-10 07:54] LABS: PROTHROMBIN TIME 9.8 SEC (9.30-11.50)
[2017-04-10 07:57] LABS: ANION GAP 11 (5-15); CALCIUM 9.1 mg/dL (8.6-10.2); CARBON DIOXIDE 26 mEQ/L (20-30); CHLORIDE 104 mEQ/L (98-107); CHOLESTEROL 178 mg/dL (< 200); CHOLESTEROL/HDL RATIO 4.2 (3.3-4.4); CREATININE 0.8 mg/dL (0.7-1.2); GLOMERULAR FILTRATION RATE > 60 mL/min (>60); HEMOLYSIS 14; LDL CHOLESTEROL (CALC.) 117 mg/dL (60-99); SODIUM 141 mEQ/L (135-145)
[2017-04-10 08:02] LABS: TROPONIN I < 0.30 ng/mL (<=0.30)
[2017-04-10 08:06] LABS: THYROID STIMULATING HORMONE 0.756 uIU/mL (0.300-4.500)
[2017-04-10 08:16] LABS: EOSINOPHILS % (AUTO) 7.9 % (0.0-3.0); LYMPHOCYTES % (AUTO) 42.3 % (20.0-45.0); MEAN CORPUSCULAR HEMOGLOBIN 31.8 PG (27.0-31.0); MEAN CORPUSCULAR HGB CONC 32.7 G/DL (32.0-36.0); MEAN CORPUSCULAR VOLUME 97 FL (80-99); MEAN PLATELET VOLUME 5.9 FL (6.5-10.1); MONOCYTES % (AUTO) 7.9 % (1.0-10.0); NEUTROPHILS % (AUTO) 40.9 % (45.0-75.0); PLATELET COUNT 303 K/UL (150-450); RED BLOOD COUNT 4.44 M/UL (4.70-6.10); RED CELL DISTRIBUTION WIDTH 12.5 % (11.6-14.8); WHITE BLOOD COUNT 7.6 K/UL (4.8-10.8)
[2017-04-10 08:31] VITALS: BP 119/71
[2017-04-10] MEDS ORDERED: Aspirin Baby 81mg ORAL SCH (09:00)
--- NOTE | 2017-04-10 09:33 | Pulmonology Progress Note ---
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 start low dose statin later patient decided that he wants to leave AMA Risks and consequences of signing AMA explained by nursing, patient left AMA Of note: the time of this note does not correspond to actual time the patient was seen The patient was seen at appropriately 0845 case discussed and evaluated by supervising physician Subjective Allergies: Coded Allergies: No Known Allergies (Unverified , 07/18/12) Subjective patient feeling better no chest pain no SOB Objective Last 24 Hour Vital Signs Date Time Temp Pulse Resp B/P (MAP) Pulse Ox O2 Delivery O2 Flow Rate FiO2 04/10/17 08:31 97.0 77 18 119/71 96 Room Air 04/10/17 04:31 56 04/10/17 03:49 97.7 60 21 146/78 95 Room Air 60 04/10/17 00:00 73 04/09/17 20:26 97.9 78 20 137/67 95 Room Air 04/09/17 16:00 68 04/09/17 16:00 97.4 64 21 131/78 96 Room Air 04/09/17 12:00 60 04/09/17 10:23 68 04/09/17 09:50 70 18 118/75 100 Room Air Intake and Output 04/10/17 04/11/17 19:00 07:00 Intake Total 120 ml Balance 120 ml Intake Oral 120 ml # Voids 1 Objective General Appearance: alert, awake, oriented HEENT: normocephalic, atraumatic, anicteric, mucous membranes moist Neck: supple, no JVD Respiratory/Chest: lungs clear with moderate air exchange Cardiovascular/Chest: normal peripheral pulses, normal rate , SR on tele , regular rhythm Abdomen: normal bowel sounds, non tender, soft Extremities: normal range of motion, non-tender Neurologic: no motor/sensory deficits, alert, responsive Musculoskeletal: normal muscle bulk Laboratory Tests 04/10/17 06:10: White Blood Count 7.6, Red Blood Count 4.44L, Hemoglobin 14.1L, Hematocrit 43.1 , Mean Corpuscular Volume 97, Mean Corpuscular Hemoglobin 31.8H, Mean Corpuscular Hemoglobin Concent 32.7, Red Cell Distribution Width 12.5, Platelet Count 303, Mean Platelet Volume 5.9L, Neutrophils (%) (Auto) 40.9L, Lymphocytes (%) (Auto) 42.3, Monocytes (%) (Auto) 7.9, Eosinophils (%) (Auto) 7.9H, Basophils (%) (Auto) 1.0, Prothrombin Time 9.8, Prothromb Time International Ratio 1.0, Activated Partial Thromboplast Time 27, Sodium Level 141, Potassium Level 4.0, Chloride Level 104, Carbon Dioxide Level 26, Anion Gap 11, Blood Urea Nitrogen 18, Creatinine 0.8, Estimat Glomerular Filtration Rate > 60, Glucose Level 80, Calcium Level 9.1, Troponin I < 0.30, C-Reactive Protein, Quantitative < 0.3, Triglycerides Level 96, Cholesterol Level 178, LDL Cholesterol 117H, HDL Cholesterol 42, Cholesterol/HDL Ratio 4.2, Thyroid Stimulating Hormone (TSH) 0.756 Current Medications Medications (Trade) Dose Ordered Sig/Dequan Route PRN Reason Start Time Stop Time Status Last Admin Dose Admin Acetaminophen (Tylenol) 650 mg Q4H PRN ORAL FEVER 04/09/17 09:15 05/09/17 09:14 Albuterol/ Ipratropium (DuoNeb 0.5-3(2.5)mg/3ml) 3 ml EVERY 4 HOURS PRN HHN Shortness of Breath 04/09/17 09:15 04/14/17 09:14 Aspirin (ASA) 162 mg DAILY ORAL 04/10/17 09:00 05/10/17 08:59 Clonidine HCl (Catapres) 0.1 mg Q4HR PRN ORAL High Blood Pressure SBP>160 04/09/17 09:15 05/09/17 09:14 Diltiazem HCl (Cardizem) 10 mg EVERY HOUR PRN IV heart rate more than 120, 04/09/17 09:15 05/09/17 09:14 Enalaprilat (Vasotec) 2.5 mg EVERY 6 HOURS PRN IV sbp more than 160 04/09/17 09:15 05/09/17 09:14 Heparin Sodium (Porcine) (Heparin 5000 units/ml) 5,000 units EVERY 12 HOURS SUBQ 04/09/17 21:00 05/09/17 20:59 04/09/17 22:03 Lorazepam (Ativan) 0.5 mg Q4HR PRN ORAL For Anxiety 04/09/17 09:15 04/16/17 09:14 Morphine Sulfate (Morphine Sulfate) 2 mg EVERY 4 HOURS PRN IVP severe Pain (Pain Scale 7-10) 04/09/17 09:15 04/16/17 09:14 04/09/17 17:53 Nitroglycerin (Ntg) 0.4 mg Q5M PRN SL Prn Chest Pain 04/09/17 09:15 05/09/17 09:14 Ondansetron HCl (Zofran) 4 mg Q6H PRN IVP Nausea & Vomiting 04/09/17 09:15 05/09/17 09:14 Pantoprazole (Protonix) 40 mg DAILY ORAL 04/10/17 09:00 05/10/17 08:59 Polyethylene Glycol (Miralax) 17 gm DAILYPRN PRN ORAL Constipation 04/09/17 09:15 05/09/17 09:14 Quetiapine Fumarate (SEROquel) 100 mg TWICE A DAY ORAL 04/09/17 18:00 05/09/17 17:59 04/09/17 17:52 Temazepam (Restoril) 15 mg HSPRN PRN ORAL Insomnia 04/09/17 09:15 04/16/17 09:14 Gaby Alvarez NP ([facility]) Apr 10, 2017 09:33
--- NOTE | 2017-04-10 14:15 | Consultation ---
DATE OF CONSULTATION: 04/09/2017 CARDIOLOGY CONSULTATION CONSULTING PHYSICIAN: Don Varela M.D. REFERRING PHYSICIAN: Bill Meza M.D. REASON FOR CONSULTATION: Management of chest pain. HISTORY OF PRESENT ILLNESS: This is a very pleasant 71-year-old gentleman who presents to the hospital with complaints of chest pain, which is described as a midsternal sharp pain with radiation to the left arm, 20 minutes after he smoked crack cocaine. He regularly uses crack cocaine and has been doing that for many years. He also has tried often marijuana. He drinks about a couple of cans of beer on a daily basis and he smokes about half a pack cigarettes per day. He was recently admitted to psychiatric department of [facility] at [place]. He was admitted to this hospital in November 2016, had 2D echocardiography at this time when he was being evaluated for dizziness and lightheadedness. A 2D echocardiography at this time had shown normal LV systolic function with LVEF of about 55% and no wall motion abnormalities. The patient had 12-lead electrocardiogram in the emergency department, which showed no evidence of ST and T wave abnormalities. Troponin-I was also within normal limits. He was admitted to telemetry for further evaluation and assessment of the chest pain. PAST MEDICAL HISTORY: History of schizoaffective disorder, history of gastroesophageal reflux disease, history of COPD, and history of hypertension. PAST SURGICAL HISTORY: None. MEDICATIONS: List of medication includes Seroquel 100 mg twice daily, alprazolam 2 mg twice daily, hydrocodone/acetaminophen 10/325 mg one tablet q.4 h. as needed for pain, temazepam 15 mg daily at bedtime for insomnia, MiraLax 17 g p.o. daily p.r.n. constipation, Zofran 4 mg p.o. q.6 h. as needed for nausea and vomiting, nitroglycerin 0.4 mg sublingual q.5 minutes p.r.n. chest pain, lorazepam 0.5 mg q.4 h. as needed for anxiety, and DuoNeb 3 mL q.4 h. as needed for shortness of breath, codeine/promethazine 5 mL. p.o. q.4 h. as needed for cough, clonidine 0.1 mg q.4 h. as needed for high blood pressure, systolic blood pressure above 160 mmHg, acetaminophen 650 mg q.4 h. as needed for headache and temperature above 101 degrees. ALLERGIES: No known drug allergies. FAMILY HISTORY: He claims that his father has had stroke but no other premature CAD or 03:10 . HABITS: As mentioned above smoking half a pack of tobacco everyday, smoking marijuana as well as crack cocaine on a regular basis and also has been drinking around 2 to 3 cans of beer on a daily basis. REVIEW OF SYSTEMS: HEENT: Denies any headache, diplopia, or blurred vision. Constitutional: Denies any fever, chills, night sweats, or weight loss. Cardiovascular: Chest pain as mentioned above. No shortness of breath. Denies any PND, orthopnea, leg swelling, palpitations, or syncope. Pulmonary: Denies any cough, hemoptysis, or wheezing. Gastrointestinal: Denies any nausea, vomiting, diarrhea, constipation, abdominal pain, or GI bleed. Genitourinary: Denies any hematuria, dysuria, or incontinence. Neurology: Denies any motor dysfunction, sensory deficit, or altered speech. PHYSICAL EXAMINATION: VITAL SIGNS: Blood pressure was 121/75, respirations 15, pulse of 66, O2 saturation 99% on room air, and temperature 98.1 degrees Fahrenheit. GENERAL: The patient is a very unfortunate 71-year-old gentleman in no apparent respiratory distress. HEENT: Atraumatic and normocephalic. Anicteric. Pupils are equal, round, and reactive to light and accommodation. Extraocular muscles are intact. NECK: JVP is less than 5 cm. No carotid bruit. Carotid upstroke is 2+ bilaterally. CARDIOVASCULAR: Normal S1 and S2. Regular rate and rhythm. No murmurs, gallops, or rubs. PMI is at the fourth intercostal space in the midclavicular line. LUNGS: Clear to auscultation bilaterally. ABDOMEN: Soft, nontender, and nondistended. No hepatosplenomegaly. Positive bowel sounds. EXTREMITIES: No evidence of edema, clubbing, or cyanosis. LABORATORY FINDINGS: WBC was 9.1, hemoglobin of 13.4, hematocrit of 40.2, and platelet count was 298,000. Chemistry showed sodium was 138, potassium is 4.0, chloride 102, bicarbonate 27, BUN of 11, creatinine 0.8, calcium is 9.3, and glucose 77. Troponin I was less than 0.3. Urine toxicology showed positive cocaine and marijuana. DIAGNOSTIC DATA: Chest x-ray showed no acute cardiopulmonary disease. A 12-lead electrocardiogram, sinus rhythm, heart rate of [address] and T-wave abnormalities. Normal QT interval. No evidence of LVH. ASSESSMENT AND PLAN: The patient is a very unfortunate 71-year-old gentleman, who is seen in Cardiology consultation at the request of Dr. Meza. 1. Atypical chest pain, however, due to history of cocaine abuse, history of hypertension, the patient's age, and history of tobacco use, his risk factors for coronary artery disease is making him as an intermediate likelihood of coronary artery disease and obstructive coronary artery disease needs to be ruled out by performing a myocardial imaging stress test. I would like to order adenosine myocardial perfusion imaging. The patient does not have any acute bronchoconstriction at this time and this infusion 43 rather be safe. Further therapeutic and diagnostic decision will be based on the results of the above study. In the meantime, we will also obtain fasting lipid panel. The patient will be continued on aspirin 81 mg p.o. daily. 2. History of hypertension. The patient likely benefit more from calcium-channel blockers and diuretics. Nitrate would be also good addition in view of cocaine abuse. I would like to thank, Dr. Meza, for allowing me to participate in the care of this patient. Don Varela M.D. DR: Paola JOB#: [id number] CC:
[2017-04-10] MEDS ORDERED: TYLENOL325 MG ORAL (21:21)
[2017-04-10] MEDS ORDERED: IBUPROFEN600 MG ORAL (21:21)
--- NOTE | 2017-04-10 22:54 | Cardiology Progress Note ---
Assessment/Plan Assessment/Plan 1. Atypical chest pain, intermediate likelihood of coronary artery disease, stress test on Tuesday in view of cocaine abuse, hypertension, age and tobacco use. 2. Hypercholesterolemia, continue statins. 3. History of hypertension. Subjective Subjective Sinus rhythm at 75. Denies chest pain. Objective Last 24 Hour Vital Signs Date Time Temp Pulse Resp B/P (MAP) Pulse Ox O2 Delivery O2 Flow Rate FiO2 04/10/17 08:31 97.0 77 18 119/71 96 Room Air 04/10/17 04:31 56 04/10/17 03:49 97.7 60 21 146/78 95 Room Air 60 04/10/17 00:00 73 Intake and Output 04/10/17 04/11/17 19:00 07:00 Intake Total 120 ml Balance 120 ml Intake Oral 120 ml # Voids 1 2D Echo: LVEF 60%, Mild -Mod MR, RVSP 30 mmHg Laboratory Tests Test 04/10/17 06:10 White Blood Count 7.6 K/UL (4.8-10.8) Red Blood Count 4.44 M/UL (4.70-6.10) L Hemoglobin 14.1 G/DL (14.2-18.0) L Hematocrit 43.1 % (42.0-52.0) Mean Corpuscular Volume 97 FL (80-99) Mean Corpuscular Hemoglobin 31.8 PG (27.0-31.0) H Mean Corpuscular Hemoglobin Concent 32.7 G/DL (32.0-36.0) Red Cell Distribution Width 12.5 % (11.6-14.8) Platelet Count 303 K/UL (150-450) Mean Platelet Volume 5.9 FL (6.5-10.1) L Neutrophils (%) (Auto) 40.9 % (45.0-75.0) L Lymphocytes (%) (Auto) 42.3 % (20.0-45.0) Monocytes (%) (Auto) 7.9 % (1.0-10.0) Eosinophils (%) (Auto) 7.9 % (0.0-3.0) H Basophils (%) (Auto) 1.0 % (0.0-2.0) Prothrombin Time 9.8 SEC (9.30-11.50) Prothromb Time International Ratio 1.0 (0.9-1.1) Activated Partial Thromboplast Time 27 SEC (23-33) Sodium Level 141 mEQ/L (135-145) Potassium Level 4.0 mEQ/L (3.4-4.9) Chloride Level 104 mEQ/L (98-107) Carbon Dioxide Level 26 mEQ/L (20-30) Anion Gap 11 (5-15) Blood Urea Nitrogen 18 mg/dL (7-23) Creatinine 0.8 mg/dL (0.7-1.2) Estimat Glomerular Filtration Rate > 60 mL/min (>60) Glucose Level 80 mg/dL (74-106) Calcium Level 9.1 mg/dL (8.6-10.2) Troponin I < 0.30 ng/mL (<=0.30) C-Reactive Protein, Quantitative < 0.3 mg/dL (< 0.5) Triglycerides Level 96 mg/dL (< 150) Cholesterol Level 178 mg/dL (< 200) LDL Cholesterol 117 mg/dL (60-99) H HDL Cholesterol 42 mg/dL (> 60) Cholesterol/HDL Ratio 4.2 (3.3-4.4) Thyroid Stimulating Hormone (TSH) 0.756 uIU/mL (0.300-4.500) Objective HEENT: Atraumatic and normocephalic. Anicteric. Pupils are equal, round, and reactive to light and accommodation. Extraocular muscles are intact. NECK: JVP is less than 5 cm. No carotid bruit. Carotid upstroke is 2+ bilaterally. CARDIOVASCULAR: Normal S1 and S2. Regular rate and rhythm. No murmurs, gallops, or rubs. PMI is at the fourth intercostal space in the midclavicular line. LUNGS: Clear to auscultation bilaterally. ABDOMEN: Soft, nontender, and nondistended. No hepatosplenomegaly. Positive bowel sounds. EXTREMITIES: No evidence of edema, clubbing, or cyanosis. FLORIAN VALENCIA Apr 10, 2017 22:54
--- NOTE | 2017-04-11 19:48 | Cardiology Report ---
APPROVED REPORT EKG Measurement Heart [id number] Normal sinus rhythm Normal ECG
--- NOTE | 2017-04-12 09:08 | Discharge Summary ---
Discharge Summary Hospital Course Date of Admission Apr 09, 2017 at 07:20 Date of Discharge Apr 10, 2017 at 09:25 Admitting Diagnosis -cocaine/chest pain, r/o ACS HPI Valeriano Caro is a 71 year old male who was admitted on Apr 09, 2017 at 07: 20 for Chest Pain/Cocaine/ R/O Acute Coronary Syndrome/ Hospital Course dc summary #[id number] Discharge Discharge Disposition Patient signed AMA Discharge Diagnoses: Antonio ([facility]),Gaby PORTILLO Apr 12, 2017 09:07
--- NOTE | 2017-04-12 12:22 | Cardiology Report ---
APPROVED REPORT EXAM: Two-dimensional and M-mode echocardiogram with Doppler and color Doppler. INDICATION Left Ventricular Function M-Mode DIMENSIONS IVSd0.8 (0.7-1.1cm)Left Atrium (MM)3.7 (1.6-4.0cm) LVDd4.9 (3.5-5.6cm)Aortic Root3.2 (2.0-3.7cm) PWd0.7 (0.7-1.1cm)Aortic Cusp Exc.2.0 (1.5-2.0cm) LVDs3.0 (2.5-4.0cm) PWs1.4 cm Technically difficult study due to combative patient. Normal left ventricular chamber size, systolic function and wall motion. Left ventricular ejection fraction estimated to be 60 %. No evidence of ventricular hypertrophy. Anterior Echo-free space, may be due to pericardial fat or effusion. All other cardiac chamber sizes are within normal limits. Normal appearing aortic, mitral, puImonic and tricuspid valves. Mild mitral annulus and aortic root calcification. IVC is normal in size with physiologic collapse. A color flow and spectral Doppler study was performed and revealed: No aortic regurgitation. Mild to moderate mitral regurgitation. Mitral inflow velocities indicates normal left ventricular diastolic function. Mild tricuspid regurgitation. Tricuspid systolic velocities suggests peak right ventricular systolic pressure of 30 mmHg. No pulmonic regurgitation present.
--- NOTE | 2017-04-13 01:45 | Discharge Summary 2 SIG ---
DATE OF ADMISSION: 04/09/2017 DATE OF SIGNING AGAINST MEDICAL ADVISE : 04/10/2017 REASON FOR ADMISSION: 71-year-old male with a past medical history significant for hypertension, COPD, schizoaffective disorder, and prostate cancer, presented with chest pain radiating down his left arm for 20 minutes after doing cocaine crack. The patient reportedly smokes crack regularly along with marijuana. He denied alcohol abuse and other illegal drugs. He denied previous acute myocardial infarction. The patient received aspirin from paramedics. Workup in ED revealed stable vital signs. EKG showed normal sinus rhythm. Troponin was negative. Laboratory workup was unremarkable. Chest x-ray revealed no acute cardiopulmonary disease. Urine toxicology screen was positive for cocaine and marijuana. The patient was admitted to telemetry floor for further cardiac workup. ADMITTING DIAGNOSES: 1. Chest pain 2. Rule out acute coronary syndrome. 3. Hypertension. 4. Chronic obstructive pulmonary disease. 5. Schizoaffective disorder. 6. Cocaine abuse HOSPITAL COURSE: The patient was admitted to telemetry floor. Serial troponin were negative. EKG revealed no acute ischemic changes. Cable Former followed. Patient was ruled out for acute IN. Cable Former ordered stress test. Cable Former concluded that chest pain was atypical likely secondary to cocaine abuse. Judicious pain management provided. The patient was counseled on abstinence from street drugs. DVT prophylaxis provided. Supplemental oxygen and pulmonary toilet provided as needed. Pulse oximetry was stable on room air. Aspirin continued. The patient was not on any antihypertensive medication at that time. Cable Former suggested to monitor blood pressure and possibly add calcium channel amriela and diuretic if blood pressure will be elevated. The patient would also benefit from nitrate in lieu of cocaine abuse. Lipid panel revealed elevated LDL. The patient was counseled on low-fat and low cholesterol cardiac diet. TSH was within normal limits. Psychiatric medications were resumed. In the morning of 04/10/2017, the patient decided to sign against medical advice. Risks and consequences of signing against medical advice were discussed with the patient. The patient insisted and signed the form. DISCHARGE DIAGNOSES: 1. Atypical chest pain likely related to cocaine abuse. 2. Hypercholesterolemia. 3. Cocaine abuse. 4. Hypertension. 5. Chronic obstructive pulmonary disease. 6. Schizoaffective disorder. Bill Meza D.O. Gaby Alvarez N.P. ([place]te[place]) DR: Dean JOB#: [id number] CC: ROMAN
== END 2017-04-10 09:25 | disposition left against medical advice (07) | DRG 313 ==
LOC: EDBD 06:47 → EMR 07:13 → EDBEDREQ 07:16 → 2E 07:20 → EDBEDREQ 07:34 → 2E 12:42
DX: R07.89 Other chest pain (principal); J44.9 Chronic obstructive pulmonary disease, unspecified; F14.10 Cocaine abuse, uncomplicated; E78.00 Pure hypercholesterolemia, unspecified; I10 Essential (primary) hypertension; F25.9 Schizoaffective disorder, unspecified; Z85.46 Personal history of malignant neoplasm of prostate; F17.200 Nicotine dependence, unspecified, uncomplicated; K21.9 Gastro-esophageal reflux disease without esophagitis
CPT/HCPCS: 36415; 71010; 80048; 80053; 80061; 80300; 82550; 82553; 84443; 84484; 85025; 85610; 85730; 86140; 87081; 93005; 93306; 99285

== ENCOUNTER 2017-04-10 19:27 | Emergency (ER) | payer MEDICARE, OTHER ==
[~2017-04-10] VITALS: Ht 177.8 cm; Wt 59.4 kg
[2017-04-10 19:09] VITALS: BP 162/93
[~2017-04-10 19:27] MED LIST changes: +SEROQUEL100 MG ORAL; +XANAX2 MG ORAL
[2017-04-10 20:26] LABS: EOSINOPHILS % (AUTO) 4.6 % (0.0-3.0); LYMPHOCYTES % (AUTO) 30.5 % (20.0-45.0); MEAN CORPUSCULAR HEMOGLOBIN 33.4 PG (27.0-31.0); MEAN CORPUSCULAR HGB CONC 34.7 G/DL (32.0-36.0); MEAN CORPUSCULAR VOLUME 96 FL (80-99); MEAN PLATELET VOLUME 5.7 FL (6.5-10.1); MONOCYTES % (AUTO) 9.4 % (1.0-10.0); NEUTROPHILS % (AUTO) 54.5 % (45.0-75.0); PLATELET COUNT 282 K/UL (150-450); RED BLOOD COUNT 4.43 M/UL (4.70-6.10); RED CELL DISTRIBUTION WIDTH 12.9 % (11.6-14.8); WHITE BLOOD COUNT 8.2 K/UL (4.8-10.8)
[2017-04-10 20:41] LABS: INR 0.9 (0.9-1.1); PROTHROMBIN TIME 9.3 SEC (9.30-11.50)
[2017-04-10 20:46] LABS: ALANINE AMINOTRANSFERASE 14 U/L (3-41); ALBUMIN/GLOBULIN RATIO 1.1 (1.0-2.7); ANION GAP 13 (5-15); ASPARTATE AMINO TRANSFERASE 19 U/L (5-40); CALCIUM 10.1 mg/dL (8.6-10.2); CARBON DIOXIDE 30 mEQ/L (20-30); CHLORIDE 100 mEQ/L (98-107); CREATININE 0.8 mg/dL (0.7-1.2); GLOMERULAR FILTRATION RATE > 60 mL/min (>60); HEMOLYSIS 37; POTASSIUM 4.5 mEQ/L (3.4-4.9); SODIUM 143 mEQ/L (135-145); TOTAL PROTEIN 7.7 g/dL (6.6-8.7); TROPONIN I < 0.30 ng/mL (<=0.30)
--- NOTE | 2017-04-10 21:15 | Emergency Room Report ---
History of Present Illness General Chief Complaint: Pain Source: Patient Present Illness HPI Patient's complaining of left arm pain. He was admitted to the hospital yesterday for rule out myocardial infarction. Troponins were negative. He signed out AGAINST MEDICAL ADVICE. Patient is positive for cocaine use. The pain is sharp and stinging in the upper arm, radiates slightly to shoulder. Some worsening when he moves the arm about. No pain medicines taken. Pain is 8/10. He denies chest pain, cough, hemoptysis, fevers. He wants to be checked again for possible involvement of his heart (and wants dx of this pain). No depression, SI, HI. H/O schizophrenia. No rashes, NVD, dysuria, headache. 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 Reviewed Nursing Documentation: PMH: Agreed, PSxH: Agreed Nursing Documentation-PMH Hx Cardiac Problems: No Hx Hypertension: Yes Hx COPD: Yes Hx Cancer: Yes Hx Gastrointestinal Problems: Yes History Of Psychiatric Problem: Yes Hx Neurological Problems: No Review of Systems All Other Systems: negative except mentioned in HPI Physical Exam Vital Signs Date Time Temp Pulse Resp B/P (MAP) Pulse Ox O2 Delivery O2 Flow Rate FiO2 04/10/17 18:55 99.0 80 18 162/93 99 Room Air Sp02 EP Interpretation: reviewed, normal General Appearance: well appearing, no apparent distress, GCS 15, thin, other - slightly dishevelled Head: normocephalic, atraumatic Eyes: bilateral eye PERRL, bilateral eye Scleral Injection ENT: moist mucus membranes - poor dentition Neck: supple Respiratory: chest non-tender, lungs clear, normal breath sounds Cardiovascular #1: regular rate, rhythm Cardiovascular #2: 2+ radial (R), 2+ radial (L) - cap fill normal L hand Gastrointestinal: normal inspection, normal bowel sounds, non tender, no mass, non-distended Musculoskeletal: back normal, gait/station normal, normal range of motion, tender - L upper arm and scapular area, shoulder without crepetance or limitation of movement Neurologic: alert, oriented x3, grossly normal Psychiatric: mood/affect normal Skin: normal inspection, warm/dry Medical Decision Making Diagnostic Impression: Primary Impression: Left arm pain Additional Impression: Cocaine abuse ER Course Patient with L arm pain and h/o cocaine abuse. Ddx: AMI, ACS, pneumothorax, strain, bursitis, muscle spasm, rhabdo, PE amongst others. Exam against PE. Already prior troponins neg. We need to repeat EKG, CXR, labs and troponin. Exam is more consistent with local process in shoulder and upper arm. Will treat with motrin. EKG CXR as below. Trop negative. + cocaine again. Patient improved with treatment. No medical emergency at this time. Discussed tx plan and need to stop cocaine abuse. Patient stable for outpatient observation and treatment. Laboratory Tests Test 04/10/17 19:44 04/10/17 20:14 Urine Opiates Screen Negative (NEGATIVE) Urine Barbiturates Screen Negative (NEGATIVE) Phencyclidine (PCP) Screen Negative (NEGATIVE) Urine Amphetamines Screen Negative (NEGATIVE) Urine Benzodiazepines Screen Negative (NEGATIVE) Urine Cocaine Screen Positive (NEGATIVE) H Urine Marijuana (THC) Screen Negative (NEGATIVE) White Blood Count 8.2 K/UL (4.8-10.8) Red Blood Count 4.43 M/UL (4.70-6.10) L Hemoglobin 14.8 G/DL (14.2-18.0) Hematocrit 42.6 % (42.0-52.0) Mean Corpuscular Volume 96 FL (80-99) Mean Corpuscular Hemoglobin 33.4 PG (27.0-31.0) H Mean Corpuscular Hemoglobin Concent 34.7 G/DL (32.0-36.0) Red Cell Distribution Width 12.9 % (11.6-14.8) Platelet Count 282 K/UL (150-450) Mean Platelet Volume 5.7 FL (6.5-10.1) L Neutrophils (%) (Auto) 54.5 % (45.0-75.0) Lymphocytes (%) (Auto) 30.5 % (20.0-45.0) Monocytes (%) (Auto) 9.4 % (1.0-10.0) Eosinophils (%) (Auto) 4.6 % (0.0-3.0) H Basophils (%) (Auto) 1.0 % (0.0-2.0) Prothrombin Time 9.3 SEC (9.30-11.50) Prothrombin Time INR 0.9 (0.9-1.1) PTT 25 SEC (23-33) Sodium Level 143 mEQ/L (135-145) Potassium Level 4.5 mEQ/L (3.4-4.9) Chloride Level 100 mEQ/L (98-107) Carbon Dioxide Level 30 mEQ/L (20-30) Anion Gap 13 (5-15) Blood Urea Nitrogen 18 mg/dL (7-23) Creatinine 0.8 mg/dL (0.7-1.2) Estimate Glomerular Filtration Rate > 60 mL/min (>60) Glucose Level 94 mg/dL (74-106) Calcium Level 10.1 mg/dL (8.6-10.2) Total Bilirubin < 0.2 mg/dL (0.0-1.2) Aspartate Amino Transferase (AST) 19 U/L (5-40) Alanine Aminotransferase (ALT) 14 U/L (3-41) Alkaline Phosphatase 70 U/L (40-129) Total Creatine Kinase 86 U/L (38-174) Troponin I < 0.30 ng/mL (<=0.30) Pro-B-Type Natriuretic Peptide 109 pg/mL (0-125) Total Protein 7.7 g/dL (6.6-8.7) Albumin 4.1 g/dL (3.5-5.2) Globulin 3.6 g/dL Albumin/Globulin Ratio 1.1 (1.0-2.7) EKG Diagnostic Results Rate: normal Rhythm: NSR ST Segments: no acute changes Rhythm Strip Diag. Results EP Interpretation: yes Rhythm: NSR, no PVC's, no ectopy Chest X-Ray Diagnostic Results Chest X-Ray Diagnostic Results : Chest X-Ray Ordered: Yes - 04/09/17 # of Views/Limited/Complete: 1 View Indication: Chest Pain EP Interpretation: Yes Interpretation: no consolidation, no effusion, no pneumothorax Impression: No acute disease Interpreting ER Provider: Electronically signed by Santiago Goodman MD Last Vital Signs Date Time Temp Pulse Resp B/P (MAP) Pulse Ox O2 Delivery O2 Flow Rate FiO2 04/10/17 21:30 98.9 77 18 158/90 99 Room Air Status: improved Disposition: HOME, SELF-CARE Condition: Improved Scripts Acetaminophen (Tylenol) 325 Mg Tablet 650 MG ORAL Q6H Y for Prn Pain/Headache/Temp > 101, #20 TAB 0 Refills Prov: Santiago Goodman M.D. 04/10/17 Ibuprofen* (MOTRIN*) 600 Mg Tablet 600 MG ORAL Q6H Y for For Pain, #20 TAB Prov: Santiago Goodman M.D. 04/10/17 Santiago Goodman M.D. Apr 10, 2017 21:15
[2017-04-10] MEDS ORDERED: TYLENOL325 MG ORAL (21:21)
[2017-04-10] MEDS ORDERED: IBUPROFEN600 MG ORAL (21:21)
[2017-04-10 21:30] VITALS: BP 158/90
== END 2017-04-10 21:30 | disposition home or self-care (01) ==
LOC: EDBD 19:27 → EMR 19:35
DX: M79.602 Pain in left arm (principal); F14.10 Cocaine abuse, uncomplicated; F17.200 Nicotine dependence, unspecified, uncomplicated; I10 Essential (primary) hypertension; J44.9 Chronic obstructive pulmonary disease, unspecified; Z85.9 Personal history of malignant neoplasm, unspecified
CPT/HCPCS: 36415; 71010; 80053; 80300; 82550; 83880; 84484; 85025; 85610; 85730; 99284

== ENCOUNTER 2017-05-19 12:39 | Emergency (ER) | payer MEDICARE, OTHER ==
[~2017-05-19] VITALS: Ht 177.8 cm; Wt 63.0 kg
[~2017-05-19 12:39] MED LIST changes: +IBUPROFEN600 MG ORAL; +TYLENOL325 MG ORAL
[2017-05-19 12:41] VITALS: BP 142/81
--- NOTE | 2017-05-19 13:03 | Emergency Room Report ---
History of Present Illness General Chief Complaint: Dyspnea/Respdistress Source: Patient Present Illness HPI The patient is a 71-year-old male with a history of COPD presenting for cough and shortness of breath. He states that he ran out of his albuterol and has been unable to see his primary doctor. Symptoms worsened once he ran out of his medication. He denies any chest pain. He denies any other symptoms including N, V, F, chills, numbness/tingling, hemoptysis, abd pain Allergies: Coded Allergies: No Known Allergies (Unverified , 07/18/12) Patient History Past Medical History: see triage record Pertinent Family History: none Reviewed Nursing Documentation: PMH: Agreed, PSxH: Agreed Nursing Documentation-PMH Past Medical History: No History, Except For Hx Cardiac Problems: No Hx Hypertension: Yes Hx Pacemaker: No Hx Asthma: No Hx COPD: Yes Hx Diabetes: No Hx Cancer: Yes - Prostate CA Hx Gastrointestinal Problems: Yes Hx Dialysis: No History Of Psychiatric Problem: No Hx Neurological Problems: No Hx Cerebrovascular Accident: No Hx Seizures: No Review of Systems All Other Systems: negative except mentioned in HPI Physical Exam Vital Signs Date Time Temp Pulse Resp B/P (MAP) Pulse Ox O2 Delivery O2 Flow Rate FiO2 05/19/17 12:41 64 18 142/81 96 Room Air Sp02 EP Interpretation: reviewed, normal General Appearance: no apparent distress, alert, GCS 15, non-toxic Head: normocephalic, atraumatic Eyes: bilateral eye normal inspection, bilateral eye PERRL ENT: hearing grossly normal, normal pharynx, no angioedema, normal voice Neck: full range of motion, supple/symm/no masses Respiratory: chest non-tender, lungs clear, no accessory muscle use, decreased breath sounds Cardiovascular #1: regular rate, rhythm, no edema Musculoskeletal: back normal, gait/station normal, normal range of motion, non- tender Neurologic: alert, oriented x3, responsive, motor strength/tone normal, sensory intact, speech normal Psychiatric: judgement/insight normal, memory normal, mood/affect normal, no suicidal/homicidal ideation Skin: normal color, no rash, warm/dry, well hydrated Medical Decision Making PA Attestation Dr. Hernandez is my supervising physician. Patient management was discussed with my supervising physician Diagnostic Impression: Primary Impression: COPD (chronic obstructive pulmonary disease) Qualified Codes: J44.9 - Chronic obstructive pulmonary disease, unspecified Additional Impression: Atypical pneumonia ER Course The patient is a 71-year-old male with a history of COPD presenting for cough and shortness of breath Differential diagnosis include but not limited to COPD, pharyngitis, sinusitis , bronchitis, PNA, among others PE: vitals WNL. afebrile RRR Lungs: decreased breath sounds. No resp distress. Oropharynx unremarkable Cap refill < 2 seconds CXR shows no acute findings The patient is TN'ed home with prescription for albuterol, prednisone, and Z pack ER precautions given Chest X-Ray Diagnostic Results Chest X-Ray Diagnostic Results : Chest X-Ray Ordered: Yes # of Views/Limited/Complete: 1 View Indication: Shortness of Breath EP Interpretation: Yes Interpretation: no consolidation, no effusion, no pneumothorax, no acute cardiopulmonary disease Impression: No acute disease Electronically Signed by: GREG Khan Scribe Text My and my supervising physician's interpretation of the chest xrays are there is no consolidation, no effusion, no acute cardiopulmonary disease, no pneumothorax Last Vital Signs Date Time Temp Pulse Resp B/P (MAP) Pulse Ox O2 Delivery O2 Flow Rate FiO2 05/19/17 12:41 64 18 142/81 96 Room Air Status: improved Disposition: HOME, SELF-CARE Condition: Improved Scripts Azithromycin* (ZITHROMAX*) 250 Mg Tablet 250 MG ORAL DAILY, #6 TAB 0 Refills Take two tables once daily for 1 day, then one tablet once daily for 4 days. Prov: HEIDI HANKS 05/19/17 Albuterol Sulfate* (PROAIR HFA*) 8.5 Gm Hfa.aer.ad 2 PUFFS INH Q6H, #8.5 GM 0 Refills Prov: HEIDI HANKSADaniella 05/19/17 Prednisone* (PREDNISONE*) 20 Mg Tablet 20 MG ORAL DAILY, #5 TAB 0 Refills Prov: HEIDI HANKS P.ADaniella 05/19/17 Referrals: SREEDHAR RAMIREZ (PCP) HEIDI HANKS May 19, 2017 13:03
[2017-05-19] MEDS ORDERED: ZITHROMAX250 MG ORAL (13:09)
[2017-05-19] MEDS ORDERED: PREDNISONE20 MG ORAL (13:09)
[2017-05-19] MEDS ORDERED: PROAIR HFA8.5 GM INH (13:09)
[2017-05-19 13:23] VITALS: BP 160/69
--- NOTE | 2017-05-19 13:58 | Diagnostic Imaging Report ---
Indication: Dyspnea Comparison: 04/09/17 A single view chest radiograph was obtained. Findings: Cardiomediastinal appearance is within normal limits for age. Pulmonary vascularity is appropriate. The diaphragmatic contour is smooth and costophrenic angles are sharp. No pleural effusions are identified. The bones are ischemic. Impression: No acute findings
[2017-08-09] MEDS ORDERED: PROAIR HFA8.5 GM INH (13:53)
== END 2017-05-19 13:25 | disposition home or self-care (01) ==
LOC: EMR 12:58
DX: J44.9 Chronic obstructive pulmonary disease, unspecified (principal); J18.9 Pneumonia, unspecified organism; I10 Essential (primary) hypertension; Z85.46 Personal history of malignant neoplasm of prostate
CPT/HCPCS: 71010; 99284

== ENCOUNTER 2017-08-05 08:05 | Emergency (ER) | payer MEDICARE, OTHER ==
[~2017-08-05] VITALS: Ht 177.8 cm; Wt 65.8 kg
[~2017-08-05 08:05] MED LIST changes: +PREDNISONE20 MG ORAL; +PROAIR HFA8.5 GM INH; +ZITHROMAX250 MG ORAL
[2017-08-05 08:32] VITALS: BP 138/84
[2017-08-05 09:07] VITALS: BP 138/84
--- NOTE | 2017-08-05 12:51 | Emergency Room Report ---
History of Present Illness General Chief Complaint: Skin Rash/Abscess Source: Patient Present Illness HPI 72-year-old male, no significant past medical history, presenting with sore on left side of lip. Has been there for 3 days. Painful. No other complaints Allergies: Coded Allergies: No Known Allergies (Unverified , 07/18/12) Patient History Past Medical History: see triage record Past Surgical History: none Pertinent Family History: none Reviewed Nursing Documentation: PMH: Agreed, PSxH: Agreed Nursing Documentation-PMH Past Medical History: No History, Except For Hx Cardiac Problems: No Hx Hypertension: Yes Hx Pacemaker: No Hx Asthma: No Hx COPD: Yes Hx Diabetes: No Hx Cancer: Yes - Prostate CA Hx Gastrointestinal Problems: Yes Hx Dialysis: No Hx Neurological Problems: No Hx Cerebrovascular Accident: No Hx Seizures: No Review of Systems All Other Systems: negative except mentioned in HPI Physical Exam Vital Signs Date Time Temp Pulse Resp B/P (MAP) Pulse Ox O2 Delivery O2 Flow Rate FiO2 08/05/17 08:14 97.2 66 18 138/84 100 Room Air Sp02 EP Interpretation: reviewed, normal General Appearance: normal inspection, well appearing, no apparent distress, alert, GCS 15, non-toxic Head: normocephalic, atraumatic Eyes: bilateral eye normal inspection, bilateral eye PERRL, bilateral eye EOMI ENT: normal pharynx, normal voice, moist mucus membranes, other - Left bottom lip with small papule, small abscess, expressed purulent drainage and then resolves Neck: normal inspection, full range of motion, supple Respiratory: normal inspection, lungs clear, normal breath sounds, no respiratory distress, no retraction, no wheezing, speaking full sentences, chest symmetrical Cardiovascular #1: normal inspection, regular rate, rhythm, no edema, normal capillary refill Cardiovascular #2: 2+ radial (R), 2+ radial (L) Gastrointestinal: normal inspection, non tender, soft, non-distended, no guarding Genitourinary: no CVA tenderness Musculoskeletal: normal inspection, back normal, normal range of motion, non- tender Neurologic: normal inspection, alert, oriented x3, responsive, motor strength/ tone normal, sensory intact, normal gait, speech normal Psychiatric: normal inspection, judgement/insight normal, memory normal Skin: normal inspection, normal color, no rash, warm/dry, well hydrated, normal turgor Medical Decision Making Diagnostic Impression: Primary Impression: Papule of skin ER Course 72-year-old male with pimple left lower lip DDX: Appears to be small abscess/the left lower lip which was already drained by me no surrounding cellulitis Plan: None ER course: Patient has remained stable during ED stay. Disposition: Patient is to be discharged to home. Patient is instructed to follow up with their primary care doctor within 5 days. Strict return precautions discussed with patient such as fever, chills, worsening/severe pain, chest pain, SOB, nausea, vomiting, which may indicate severe illness. Patient verbalizes understanding and agrees with plan. Please note that this Emergency Department Report was dictated using [employer] aide technology software, occasionally this can lead to erroneous entry secondary to interpretation by the dictation equipment Last Vital Signs Date Time Temp Pulse Resp B/P (MAP) Pulse Ox O2 Delivery O2 Flow Rate FiO2 08/05/17 09:07 97.2 78 18 138/84 100 Room Air Disposition: HOME, SELF-CARE Condition: Improved Patient Instructions: Abscess Additional Instructions: PLEASE FOLLOW UP WITH YOUR DOCTOR IN 3 DAYS RETURN TO THE ED IF YOU HAVE INCREASING RASH, FEVER, CHILLS Delroy Robins M.D. Aug 05, 2017 12:51
[2017-08-09] MEDS ORDERED: PROAIR HFA8.5 GM INH (13:53)
== END 2017-08-05 09:09 | disposition home or self-care (01) ==
LOC: EMR 08:40
DX: R23.8 Other skin changes (principal); K13.0 Diseases of lips
CPT/HCPCS: 99282

== ENCOUNTER → 2017-08-09 | Emergency (ER) | payer MEDICARE, OTHER ==
[~2017-08-09] VITALS: Ht 177.8 cm; Wt 63.5 kg
[2017-08-09 13:39] VITALS: BP 115/72
--- NOTE | 2017-08-09 14:12 | Emergency Room Report ---
History of Present Illness General Chief Complaint: Upper Respiratory Illness Source: Patient Present Illness [facility] The patient is a 72-year-old male presenting for medication refill. He states that he has a history of COPD and uses albuterol as needed. He ran out 2 days prior. He states that he has mild shortness of breath with movement which feels normal for his COPD. He denies taking any other medications for COPD besides albuterol. He denies any other symptoms including fever, chills, cough , hemoptysis, CP Allergies: Coded Allergies: No Known Allergies (Unverified , 07/18/12) Patient History Past Medical History: see triage record Pertinent Family History: none Reviewed Nursing Documentation: PMH: Agreed, PSxH: Agreed Nursing Documentation-PMH Hx Cardiac Problems: No Hx Hypertension: Yes Hx Pacemaker: No Hx Asthma: No Hx COPD: Yes Hx Diabetes: No Hx Cancer: Yes - Prostate CA Hx Gastrointestinal Problems: Yes Hx Dialysis: No Hx Neurological Problems: No Hx Cerebrovascular Accident: No Hx Seizures: No Review of Systems All Other Systems: negative except mentioned in HPI Physical Exam Vital Signs Date Time Temp Pulse Resp B/P (MAP) Pulse Ox O2 Delivery O2 Flow Rate FiO2 08/09/17 13:39 97.7 80 18 115/72 98 Room Air Sp02 EP Interpretation: reviewed, normal General Appearance: no apparent distress, alert, GCS 15, non-toxic Head: normocephalic, atraumatic Eyes: bilateral eye normal inspection, bilateral eye PERRL ENT: hearing grossly normal, normal pharynx, no angioedema, normal voice Neck: full range of motion, supple/symm/no masses Respiratory: chest non-tender, lungs clear, normal breath sounds, speaking full sentences Cardiovascular #1: regular rate, rhythm, no edema Musculoskeletal: back normal, gait/station normal, normal range of motion, non- tender Neurologic: alert, oriented x3, responsive, motor strength/tone normal, sensory intact, speech normal Psychiatric: judgement/insight normal, memory normal, mood/affect normal, no suicidal/homicidal ideation Skin: normal color, no rash, warm/dry, well hydrated Medical Decision Making PA Attestation Dr. Hernandez is my supervising physician. Patient management was discussed with my supervising physician Diagnostic Impression: Primary Impression: COPD (chronic obstructive pulmonary disease) Qualified Codes: J44.9 - Chronic obstructive pulmonary disease, unspecified ER Course The patient is a 72-year-old male presenting for medication refill. Differential diagnosis include but not limited to COPD, pharyngitis, sinusitis, bronchitis, PNA PE: afebrile. No tachypnea. No apparent distress. No TTP over maxillary or frontal sinuses. Lungs: diffuse wheezing. No accessory muscle use. No resp distress Heart: RRR, no abnormal heart sounds Ears: external auditory canal clear. Non erythematous. Bilat TM intact. Cone of light present bilat. No bulging of TM. No serous fluid seen. no nasal D/C No cervical lymphad No tonsillar exudate. Uvula midline.Oropharynx non erythematous The patient will be discharged home with a prescription for albuterol and will FU with PMD Last Vital Signs Date Time Temp Pulse Resp B/P (MAP) Pulse Ox O2 Delivery O2 Flow Rate FiO2 08/09/17 13:39 97.7 80 18 115/72 98 Room Air Status: improved Disposition: HOME, SELF-CARE Condition: Improved Scripts Albuterol Sulfate* (PROAIR HFA*) 8.5 Gm Hfa.aer.ad 2 PUFFS INH Q6H, #8.5 GM 0 Refills Prov: HEIDI HANKS 08/09/17 Referrals: NOT CHOSEN [facility]/MD,REFERRING (PCP) Patient Instructions: Chronic Obstructive Pulmonary Disease Additional Instructions: I discussed my findings with the patient. All questions and concerns have been answered. Treatment and medication compliance have been addressed. I advised the patient that they need to follow up with PMD in 3-5 days. Return to ED if symptoms worsen, new symptoms arise, or if needed for any reason. Patient verbalized understanding of discharge instructions. HEIDI HANKS Aug 09, 2017 14:12
== END | disposition home or self-care (01) ==
LOC: EMR 13:51
DX: J44.9 Chronic obstructive pulmonary disease, unspecified (principal); I10 Essential (primary) hypertension; Z85.46 Personal history of malignant neoplasm of prostate; Z76.0 Encounter for issue of repeat prescription
CPT/HCPCS: 99283